=== PATIENT | female | born 1945 | race Caucasian/White ===

== ENCOUNTER 2019-09-29 08:51 | Outpatient (CLI) | payer MEDICARE, OTHER, SELFPAY | END 2019-09-29 08:52 | disposition home or self-care (01) | PROVIDERS: PCP Nurse Practitioner Family; Visit Provider Specialist | DX: L72.0 Epidermal cyst (principal); C43.59 Malignant melanoma of other part of trunk | CPT/HCPCS: 88305; 88342 ==

== ENCOUNTER 2020-02-02 08:01 | Outpatient (CLI) | payer MEDICARE, SELFPAY ==
[2020-02-02 08:15] LABS: Basophils Absolute Auto 0.05 K/mm3 (0.00-0.10); Basophils Percent Auto 0.7 % (0.0-1.0); Eosinophils Percent Auto 1.4 % (1.0-6.0); Hematocrit 44.2 % (35.0-42.0); Hemoglobin 14.3 g/dL (11.7-13.8); Immature Granulocyte Absolute 0.02 K/mm3 (0.00-0.00); Immature Granulocyte Percent A 0.3 % (0.0-0.0); Lymphocytes Absolute Auto 2.79 K/mm3 (1.10-4.50); Lymphocytes Percent Auto 39.1 % (18.0-42.0); Mean Corpuscular HGB Conc 32.4 g/dL (32.0-36.0); Mean Corpuscular Hemoglobin 28.7 pg (27.0-31.0); Mean Corpuscular Volume 88.8 fL (78.0-102.0); Mean Platelet Volume 9.3 fl (9.2-11.8); Monocytes Absolute Auto 0.53 K/mm3 (0.10-0.90); Monocytes Percent Auto 7.4 % (2.0-11.0); Neutrophils Absolute Auto 3.7 K/mm3 (1.7-7.2); Neutrophils Percent Auto 51.1 % (50.0-70.0); Platelet Count Result 192 K/mm3 (150-420); Red Blood Count 4.98 M/mm3 (4.20-5.40); Red Cell Distribution Width 12.7 % (11.6-14.4); White Blood Count 7.1 K/mm3 (4.8-10.8)
[2020-02-02 09:21] LABS: Alanine Aminotransferase 41 U/L (14-59); Albumin Level 3.5 g/dL (3.4-5.0); Alkaline Phosphatase 88 U/L (46-116); Anion Gap 8.4 mmol/L (7-16); Aspartate Amino Transferase 31 U/L (15-37); Bilirubin,Total 0.4 mg/dL (0.00-1.00); Blood Urea Nitrogen 13 mg/dL (7-18); Calcium 8.9 mg/dL (8.5-10.1); Carbon Dioxide 33 mmol/L (21-32); Chloride 102 mmol/L (98-108); Cholesterol 250 mg/dL (0-200); Estimated Glomerular Filt Rate 52; Glucose 98 mg/dL (70-99); HDL Direct 51 mg/dL (40-60); LDL Cholesterol Calculated 166 mg/dL (<130); Osmolality Calculated 288 mOsm/kg (285-295); Potassium 4.4 mmol/L (3.5-5.1); Sodium 139 mmol/L (136-145); Total Protein 6.7 g/dL (6.4-8.2); Triglycerides 164 mg/dL (0-150)
== END 2020-02-02 08:02 | disposition home or self-care (01) ==
LOC: CHSLAB 08:05
PROVIDERS: PCP Nurse Practitioner Family; Visit Provider Nurse Practitioner Family
DX: R06.02 Shortness of breath (principal); E78.5 Hyperlipidemia, unspecified; Z00.00 Encounter for general adult medical examination without abnormal findings
CPT/HCPCS: 36415; 80053; 80061; 85025

== ENCOUNTER 2020-07-19 11:37 | Outpatient (CLI) | payer MEDICARE, OTHER, SELFPAY ==
--- NOTE | 2020-07-19 11:41 | ECG_ITS ---
Measurements Intervals [place] Rate: 59 P: 55 VA: 195 QRS: 16 QRSD: 82 T: 65 QT: 397 QTc: 396 Interpretive Statements SINUS BRADYCARDIA EARLY PRECORDIAL R/S TRANSITION BORDERLINE ECG Electronically Signed On 07-19-2020 12:12:55 [employer] by Casey Hutson D.O.
[2020-07-19 12:07] LABS: Basophils Absolute Auto 0.03 K/mm3 (0.00-0.10); Basophils Percent Auto 0.4 % (0.0-1.0); Eosinophils Percent Auto 1.3 % (1.0-6.0); Hematocrit 42.9 % (35.0-42.0); Hemoglobin 14.1 g/dL (11.7-13.8); Immature Granulocyte Absolute 0.03 K/mm3 (0.00-0.00); Immature Granulocyte Percent A 0.4 % (0.0-0.0); Lymphocytes Absolute Auto 2.59 K/mm3 (1.10-4.50); Lymphocytes Percent Auto 33.1 % (18.0-42.0); Mean Corpuscular HGB Conc 32.9 g/dL (32.0-36.0); Mean Corpuscular Hemoglobin 28.5 pg (27.0-31.0); Mean Corpuscular Volume 86.8 fL (78.0-102.0); Mean Platelet Volume 9.8 fl (9.2-11.8); Monocytes Absolute Auto 0.68 K/mm3 (0.10-0.90); Monocytes Percent Auto 8.7 % (2.0-11.0); Neutrophils Absolute Auto 4.4 K/mm3 (1.7-7.2); Neutrophils Percent Auto 56.1 % (50.0-70.0); Platelet Count Result 197 K/mm3 (150-420); Red Blood Count 4.94 M/mm3 (4.20-5.40); White Blood Count 7.8 K/mm3 (4.8-10.8)
[2020-07-19 12:58] LABS: Alanine Aminotransferase 34 U/L (14-59); Albumin Level 3.8 g/dL (3.4-5.0); Alkaline Phosphatase 85 U/L (46-116); Anion Gap 6 mmol/L (8-16); Aspartate Amino Transferase 25 U/L (15-37); Bilirubin,Total 0.4 mg/dL (0.00-1.00); Blood Urea Nitrogen 13 mg/dL (7-18); Calcium 9.4 mg/dL (8.5-10.1); Carbon Dioxide 32 mmol/L (21-32); Chloride 101 mmol/L (98-108); Cholesterol 261 mg/dL (0-200); Estimated Glomerular Filt Rate 58; Glucose 83 mg/dL (70-99); HDL Direct 51 mg/dL (40-60); LDL Cholesterol Calculated 177 mg/dL (<130); Osmolality Calculated 287 mOsm/kg (285-295); Potassium 4.7 mmol/L (3.5-5.1); Sodium 139 mmol/L (136-145); Total Protein 7.1 g/dL (6.4-8.2); Triglycerides 167 mg/dL (0-150)
== END 2020-07-19 11:38 | disposition home or self-care (01) ==
LOC: CHSLAB 11:41
PROVIDERS: PCP Nurse Practitioner Family; Visit Provider Nurse Practitioner Family
DX: I20.8 Other forms of angina pectoris (principal); I10 Essential (primary) hypertension; E78.5 Hyperlipidemia, unspecified; Z00.00 Encounter for general adult medical examination without abnormal findings
CPT/HCPCS: 36415; 80053; 80061; 85025; 93005

== ENCOUNTER 2020-07-27 09:22 | Outpatient (CLI) | payer MEDICARE, OTHER, SELFPAY | END 2020-07-27 09:23 | disposition home or self-care (01) | LOC: CHSCARD 09:24 | PROVIDERS: PCP Nurse Practitioner Family; Visit Provider Nurse Practitioner Family | DX: I20.8 Other forms of angina pectoris (principal) | CPT/HCPCS: 93225; 93226 ==

== ENCOUNTER 2020-11-30 18:34 | Outpatient (NON) | payer MEDICARE, SELFPAY | END 2020-11-30 18:35 | disposition home or self-care (01) | LOC: CHSLAB 18:36 | PROVIDERS: PCP Nurse Practitioner Family; Visit Provider Nurse Practitioner Family | DX: R31.9 Hematuria, unspecified (principal) | CPT/HCPCS: 87086; 87088 ==

== ENCOUNTER 2021-02-17 11:17 | Outpatient (CLI) | payer MEDICARE, OTHER, SELFPAY ==
--- NOTE | ~2021-02-17 | XR_ITS ---
EXAMINATION: XR knee RT 3V DATE: 02/17/2021 11:55 INDICATION: Right knee pain. TECHNIQUE: 3 views of right knee were obtained. COMPARISON: None. FINDINGS: There is lateral subluxation of patella. No fracture. There is mild osteoarthritis of media l and patellofemoral compartments. There is a small knee joint effusion. IMPRESSION: 1. Mild right knee osteoarthritis. 2. Small right knee joint effusion. Reviewed, dictated and finalized at location B.
--- NOTE | ~2021-02-17 | XR_ITS ---
EXAMINATION: XR hip RT min 2V DATE: 02/17/2021 11:55 INDICATION: Right hip pain. TECHNIQUE: 2 views of right hip were obtained. COMPARISON: None. FINDINGS: Bone alignment is normal. No fracture. There is mild right hip osteoarthritis. Surgical cli ps overlie the pelvis. IMPRESSION: 1. Mild right hip osteoarthritis. Reviewed, dictated and finalized at location B.
== END 2021-02-17 11:18 | disposition home or self-care (01) ==
PROVIDERS: PCP Nurse Practitioner Family; Visit Provider Nurse Practitioner Family
DX: M25.561 Pain in right knee (principal); M25.551 Pain in right hip
CPT/HCPCS: 73502; 73562

== ENCOUNTER 2021-02-27 15:08 | Outpatient (NON) | payer MEDICARE, SELFPAY | END 2021-02-27 15:09 | disposition home or self-care (01) | LOC: CHSLAB 15:10 | PROVIDERS: Visit Provider Nurse Practitioner Family | DX: R39.9 Unspecified symptoms and signs involving the genitourinary system (principal) | CPT/HCPCS: 87077; 87086; 87088; 87186 ==

== ENCOUNTER 2021-08-28 09:33 | Outpatient (CLI) | payer MEDICARE, SELFPAY ==
--- NOTE | ~2021-08-28 | XR_ITS ---
EXAMINATION: XR_CERV2-3V_CR EXAM DATE: 08/28/2021 10:00 INDICATION: No known recent injury provided at this time. Pain of the cervical spine. TECHNIQUE: Cervical spine frontal, lateral, open-mouth odontoid projections. There is no prior stud y for comparison. FINDINGS: There is no evidence of acute cervical fracture. The odontoid process is intact. Pre-dens space is normal. Prevertebral soft tissue is normal. There are no soft tissue abnormalities identi fied. There is moderate disc disease at C5-6 and 6-7. Mild to moderate cervical arthropathy. The v ertebral bodies are aligned. IMPRESSION: 1. Moderate lower cervical disc disease. 2. Mild to moderate arthropathy. Reviewed, dictated and finalized at location B. ER SORTER
== END 2021-08-28 09:34 | disposition home or self-care (01) ==
LOC: CHSIMG 09:36
PROVIDERS: PCP Nurse Practitioner Family; Visit Provider Nurse Practitioner Family
DX: M54.2 Cervicalgia (principal)
CPT/HCPCS: 72040

== ENCOUNTER 2022-08-06 09:32 | Outpatient (CLI) | payer MEDICARE, SELFPAY ==
[2022-08-06 09:51] LABS: Basophils Absolute Auto 0.05 K/mm3 (0.00-0.10); Basophils Percent Auto 0.7 % (0.0-1.0); Eosinophils Absolute Auto 0.11 K/mm3 (0.02-0.50); Eosinophils Percent Auto 1.6 % (1.0-6.0); Hematocrit 43.2 % (35.0-42.0); Hemoglobin 14.2 g/dL (11.7-13.8); Immature Granulocyte Absolute 0.02 K/mm3 (0.00-0.00); Immature Granulocyte Percent A 0.3 % (0.0-0.0); Lymphocytes Absolute Auto 2.78 K/mm3 (1.10-4.50); Mean Corpuscular HGB Conc 32.9 g/dL (32.0-36.0); Mean Corpuscular Hemoglobin 29.3 pg (27.0-31.0); Mean Corpuscular Volume 89.1 fL (78.0-102.0); Mean Platelet Volume 9.7 fl (9.2-11.8); Monocytes Absolute Auto 0.56 K/mm3 (0.10-0.90); Monocytes Percent Auto 8.1 % (2.0-11.0); Neutrophils Absolute Auto 3.4 K/mm3 (1.7-7.2); Neutrophils Percent Auto 49.3 % (50.0-70.0); Platelet Count Result 172 K/mm3 (150-420); Red Blood Count 4.85 M/mm3 (4.20-5.40)
[2022-08-06 10:45] LABS: Alanine Aminotransferase 33 U/L (14-59); Albumin Level 3.6 g/dL (3.4-5.0); Alkaline Phosphatase 84 U/L (46-116); Anion Gap 8 mmol/L (8-16); Aspartate Amino Transferase 23 U/L (15-37); Bilirubin,Total 0.5 mg/dL (0.00-1.00); Blood Urea Nitrogen 16 mg/dL (7-18); Calcium 8.9 mg/dL (8.5-10.1); Carbon Dioxide 30 mmol/L (21-32); Chloride 105 mmol/L (98-108); Cholesterol 175 mg/dL (0-200); Estimated Glomerular Filt Rate 59; Glucose 94 mg/dL (70-99); HDL Direct 60 mg/dL (40-60); LDL Cholesterol Calculated 87 mg/dL (<130); Osmolality Calculated 297 mOsm/kg (285-295); Potassium 4.2 mmol/L (3.5-5.1); Sodium 143 mmol/L (136-145); Total Protein 6.8 g/dL (6.4-8.2); Triglycerides 142 mg/dL (0-150)
== END 2022-08-06 09:33 | disposition home or self-care (01) ==
LOC: CHSLAB 09:33
PROVIDERS: PCP Nurse Practitioner Family; Visit Provider Nurse Practitioner Family
DX: E78.5 Hyperlipidemia, unspecified (principal); I10 Essential (primary) hypertension
CPT/HCPCS: 36415; 80053; 80061; 85025

== ENCOUNTER 2022-08-10 12:57 | Outpatient (CLI) | payer MEDICARE, SELFPAY ==
--- NOTE | 2022-08-10 13:33 | ECHO_ITS ---
Patient Info Name: Michaela Mary Age: 77 years : 1945 Gender: Female HR: 64 bpm Technical Quality: Fair Exam Date: 08/10/2022 1:01 PM Exam Location: [facility] Patient Status: Outpatient Admit Date: 08/10/2022 Staff Ordering Physician: CAROL COULTER NP [place]: Guero Hernandez, BAM, RT Referring Physician: CAROL COULTER NP; Exam Type: CA echo doppler color flow Study Info Indications R01.1 - Cardiac murmur, unspecified Complete two-dimensional, color flow and Doppler transthoracic echocardiogram is performed. Summary 1. Complete two-dimensional, color flow and Doppler transthoracic echocardiogram is performed. 2. Left ventricular chamber dimension is normal. 3. Left ventricular systolic function is normal, estimated at 60-65%. 4. There is mild concentric increased left ventricular wall thickness. 5. E/e' 10 is mildly elevated. Left Ventricle E/e' 10 is mildly elevated. Left ventricular chamber dimension is normal. Left ventricular systolic function is normal, estimated at 60-65%. There is mild concentric increased left ventricular wall thickness. Right Ventricle Right ventricular systolic function is normal and with normal TAPSE 2.3 cm. Right ventricular chamber dimension is normal. Left Atria Left atrial chamber dimension is normal. Right Atria Right atrial chamber dimension is normal. Aortic Valve The aortic valve is trileaflet. There is no aortic valve stenosis. There is no aortic valve regurgitation. Pulmonic Valve There is no pulmonic regurgitation. Mitral Valve There is no mitral valve stenosis. There is no mitral valve regurgitation. Tricuspid Valve There is no tricuspid valve regurgitation. Pericardium/Pleural There is no pericardial effusion. Inferior Vena Cava Normal inferior vena cava with >50% collapse upon inspiration consistent with normal right atrial pressure, 5 mmHg. Aorta The aortic root size at the sinus of Valsalva is normal. Tricuspid Valve Name Value Normal Estimated PAP/RSVP RA Pressure 5 mmHg <=5 Report Signatures
== END 2022-08-10 12:58 | disposition home or self-care (01) ==
LOC: CHSIMG 12:58
PROVIDERS: PCP Nurse Practitioner Family; Visit Provider Nurse Practitioner Family
DX: R01.1 Cardiac murmur, unspecified (principal)
CPT/HCPCS: 93306

== ENCOUNTER 2023-01-09 14:04 | Outpatient (NON) | payer MEDICARE, SELFPAY ==
[2023-01-09 14:11] LABS: Appearance Urine Clear (Clear); Bilirubin Urine Negative (Negative); Blood Urine Negative (Negative); Glucose Urine UA Negative (Negative); Ketones Urine Trace (Negative); Leukocyte Esterase Ur 1+ LEU/UL (Negative); Nitrate Urine Negative (Negative); Protein Urine 1+ (Negative); Specific Grav Ur 1.025 (1.010-1.020); Urobilinogen Urine 0.2 mg/dL (0.2-1.0)
[2023-01-09 14:13] LABS: Add Urine Microscopic? YES; Color Urine Dark Amber (Yellow); RBC Urine None seen /hpf (0-2)
[2023-01-09 14:14] LABS: Bacteria Urine Trace /hpf; Calcium Oxalate Crystals Urine Present /hpf; Squamous Epithelial Cell Urine Rare /hpf (Few)
== END 2023-01-09 14:05 | disposition home or self-care (01) ==
PROVIDERS: Visit Provider Nurse Practitioner Family
DX: R39.9 Unspecified symptoms and signs involving the genitourinary system (principal)
CPT/HCPCS: 81001; 87086; 87088

== ENCOUNTER 2023-01-29 10:48 | Outpatient (NON) | payer MEDICARE, SELFPAY | END 2023-01-29 10:49 | disposition home or self-care (01) | LOC: CHSLAB 10:49 | PROVIDERS: Visit Provider Nurse Practitioner Family | DX: L91.8 Other hypertrophic disorders of the skin (principal) | CPT/HCPCS: 88305 ==

== ENCOUNTER 2023-05-19 13:40 | Emergency (ER) | payer MEDICARE, SELFPAY ==
[2023-05-19 13:40] VITALS: PULSE 86; RESP 20; TEMP 36.4; O2SAT 93
--- NOTE | 2023-05-19 13:43 | ED.WOUNDLAC ---
HPI - Wound/Laceration General Chief Complaint: Wound/Laceration Stated Complaint: right index finger laceration Time Seen by Provider: 05/19/23 13:43 Source: patient and RN notes reviewed Mode of arrival: ambulatory Limitations: no limitations History of Present Illness HPI narrative: patient states she was using a hand saw to cut a limb and it slipped raked over her right index finger. Onset (ago): minute(s) (30) Extremity Location: Right: hand ( Index finger) Place: home Patient tetanus UTD: No Context: accidental Associated symptoms: pain Treatments prior to arrival: bandage Related Data Allergies Allergy/AdvReac Type Severity Reaction Status Date / Time codeine Allergy Intermediate Unknown Verified 01/29/23 11:46 Penicillins Allergy Intermediate Unknown Verified 01/29/23 11:46 Review of Systems Review of Systems: All systems reviewed & are unremarkable except as noted in HPI and below PMFSH Past Medical History Medical History Cyst of buttocks Disc degeneration GERD (gastroesophageal reflux disease) HTN (hypertension) Hyperlipidemia Kidney anomaly, 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 Overweight Surgical History Surgical History H/O vaginal hysterectomy History of breast augmentation Right breast reduction(about 5lb removed) History of cataract removal with insertion of prosthetic lens Family History Family History Mother Colon cancer Social History Social History Smoking status: Never smoker Alcohol intake: never Substance use: never Lack of Transportation: No Lack of Food: Never True Current Housing: I Have Housing Concerned About Future Housing: No Difficulty Paying Gas/Electric Bills: No Difficulty Paying for Meds: No Currently Unemployed: No Difficulty w/ Childcare or Family Care: No Living arrangements: alone Occupation/Education: retired Additional occupation/education comments: Works in the [employer] Gender identity (if verbalized by the patient): Female Exam Const: General: healthy appearing, no acute distress and alert Nutritional Appearance: well nourished and obese Orientation/consciousness: patient oriented x3 Limitations: no limitations HENMT: Head: normal to inspection Ears: external ears normal Face/Nose/Sinus: Normal external nose present Face and sinus: normal facial exam Mouth: Yes moist mucous membranes Eyes: Conjunctivae: conjunctivae normal Pupils: Equal, round and reactive pupils present EOM: EOMs intact bilaterally Neck: Neck: normal visual inspection Resp: Effort & Inspection: normal respiratory effort Auscultation: clear to auscultation bilaterally Cardio: Rate: regular rate Rhythm: regular rhythm GI: GI Palp: Yes Soft to palpation and No Tenderness to palpation present (GI) Auscultation: normal bowel sounds Back/Spine/Pelvis: Cervical Spine: cervical ROM normal Thoracic/Lumbar Spine: thoraco-lumbar ROM normal Skin: General skin exam: normal color Wounds: wounds noted laceration right mid 2nd finger size (1 cm) and margins poorly approximated Neuro: General: patient oriented x3, moves all extremities, no focal motor deficits and CN's II-XI intact bilaterally Speech: normal speech Gait exam (Neuro): Normal gait present Extrem: General: normal to inspection and no clubbing, cyanosis or edema Psych: Mental Status: mental status grossly normal Affect: normal affect Attitude: cooperative Procedures Laceration Laceration 1: Date: 05/19/23 Site: hand ( Index finger) Side (If applicable): right Size (cm): 1 Description: stellate Depth: simple, single layer Pre-repair: wound explored ====== Skin Level ====== Skin layer closed with: derm
[2023-05-19 13:56] VITALS: BP 142/89
[2023-05-19] MEDS: TETANUS,DIPHTHERIA,AC PERTUSSIS ADULT 0.5 ML (ADACEL) IM (13:58)
== END 2023-05-19 14:07 | disposition home or self-care (01) ==
PROVIDERS: Emergency Provider Emergency Medicine; PCP Nurse Practitioner Family
DX: S61.210A Laceration without foreign body of right index finger without damage to nail, initial encounter (principal); I10 Essential (primary) hypertension; E78.5 Hyperlipidemia, unspecified; Z23 Encounter for immunization; W27.0XXA Contact with workbench tool, initial encounter; Y92.009 Unspecified place in unspecified non-institutional (private) residence as the place of occurrence of the external cause
CPT/HCPCS: 12001; 90471; 90715; 99282

== ENCOUNTER 2023-09-05 15:14 | Outpatient (CLI) | payer MEDICARE, SELFPAY ==
[2023-09-05 15:49] LABS: Appearance Urine Clear (Clear); Bilirubin Urine Negative (Negative); Blood Urine Negative (Negative); Color Urine Light Yellow (Yellow); Glucose Urine UA Negative (Negative); Ketones Urine Negative (Negative); Leukocyte Esterase Ur 1+ LEU/UL (Negative); Nitrate Urine Negative (Negative); Protein Urine Negative (Negative); Specific Grav Ur 1.015 (1.010-1.020); Urobilinogen Urine 0.2 mg/dL (0.2-1.0)
[2023-09-05 15:57] LABS: Add Urine Microscopic? YES; Bacteria Urine 3+ /hpf; RBC Urine 0-2 /hpf (0-2); Squamous Epithelial Cell Urine Rare /hpf (Few)
[2023-09-05 16:24] LABS: Basophils Absolute Auto 0.05 K/mm3 (0.00-0.10); Basophils Percent Auto 0.5 % (0.0-1.0); Eosinophils Absolute Auto 0.11 K/mm3 (0.02-0.50); Eosinophils Percent Auto 1.1 % (1.0-6.0); Hematocrit 42.1 % (35.0-42.0); Hemoglobin 13.7 g/dL (11.7-13.8); Immature Granulocyte Absolute 0.02 K/mm3 (0.00-0.00); Immature Granulocyte Percent A 0.2 % (0.0-0.0); Lymphocytes Percent Auto 32.7 % (18.0-42.0); Mean Corpuscular HGB Conc 32.5 g/dL (32.0-36.0); Mean Corpuscular Hemoglobin 28.1 pg (27.0-31.0); Mean Corpuscular Volume 86.4 fL (78.0-102.0); Mean Platelet Volume 10.1 fl (9.2-11.8); Monocytes Absolute Auto 0.85 K/mm3 (0.10-0.90); Monocytes Percent Auto 8.7 % (2.0-11.0); Neutrophils Absolute Auto 5.6 K/mm3 (1.7-7.2); Neutrophils Percent Auto 56.8 % (50.0-70.0); Platelet Count Result 223 K/mm3 (150-420); Red Blood Count 4.87 M/mm3 (4.20-5.40); Red Cell Distribution Width 13.1 % (11.6-14.4); White Blood Count 9.8 K/mm3 (4.8-10.8)
[2023-09-05 19:02] LABS: Alanine Aminotransferase 37 U/L (14-59); Albumin Level 3.6 g/dL (3.4-5.0); Alkaline Phosphatase 83 U/L (46-116); Anion Gap 10 mmol/L (8-16); Aspartate Amino Transferase 27 U/L (15-37); Bilirubin,Total 0.5 mg/dL (0.00-1.00); Blood Urea Nitrogen 13 mg/dL (7-18); Calcium 8.9 mg/dL (8.5-10.1); Carbon Dioxide 30 mmol/L (21-32); Chloride 102 mmol/L (98-108); Estimated Glomerular Filt Rate > 60; Free T4 Free Thyroxine 0.98 ng/dL (0.76-1.46); Glucose 89 mg/dL (70-99); Iron 45 ug/dL (50-170); Magnesium 1.6 mg/dL (1.8-2.4); Osmolality Calculated 293 mOsm/kg (285-295); Potassium 4.4 mmol/L (3.5-5.1); Sodium 142 mmol/L (136-145); Thyroid Stimulating Hormone 1.68 uIU/mL (0.36-3.74); Total Protein 6.5 g/dL (6.4-8.2); Vitamin B12 839 pg/mL (193-986)
[2023-09-08 20:40] LABS: Vitamin D 25 Hydroxy 43 ng/mL (30-100)
== END 2023-09-05 15:15 | disposition home or self-care (01) ==
LOC: CHSLAB 15:16
PROVIDERS: PCP Nurse Practitioner Family; Visit Provider Nurse Practitioner Family
DX: D64.9 Anemia, unspecified (principal); R53.83 Other fatigue; Z79.899 Other long term (current) drug therapy
CPT/HCPCS: 36415; 80053; 81001; 82306; 82607; 83540; 83735; 84439; 84443; 85025; 87086

== ENCOUNTER 2023-11-28 12:50 | Emergency (ER) | payer MEDICARE, SELFPAY ==
--- NOTE | ~2023-11-28 | XR_ITS ---
EXAMINATION: XR wrist LT min 3V DATE: 11/28/2023 13:11 INDICATION: Left wrist injury. TECHNIQUE: 4 views of left wrist were obtained. COMPARISON: None. FINDINGS: Bone alignment is normal. No fracture. There is mild osteoarthritis of first carpometacarpa l joint. IMPRESSION: 1. Mild osteoarthritis of first carpometacarpal joint. Reviewed, dictated and finalized at location A.
--- NOTE | ~2023-11-28 | XR_ITS ---
EXAMINATION: XR hand LT min 3V DATE: 11/28/2023 13:11 INDICATION: Left hand and wrist injury. TECHNIQUE: 3 views of left hand were obtained. COMPARISON: None. 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 There is ankylos is of third proximal and distal interphalangeal joints and fourth distal interphalangeal joint. No fr acture. There is mild osteoarthritis of first carpometacarpal joint and some of the interphalangeal j oints and metacarpophalangeal joints. There is moderate osteoarthritis of first interphalangeal joint . IMPRESSION: 1. Polyarticular osteoarthritis. Reviewed, dictated and finalized at location A.
[2023-11-28 12:50] VITALS: BP 155/89; PULSE 64; RESP 16; TEMP 36.5; O2SAT 97
--- NOTE | 2023-11-28 13:32 | ED.UPPEXIN ---
HPI - Extremity Injury (Upper) General Chief Complaint: Extremity Injury, Upper Stated Complaint: left hand injury Time Seen by Provider: 11/28/23 12:54 Source: patient Mode of arrival: ambulatory Limitations: no limitations History of Present Illness HPI narrative: this is a 78-year-old female who presents with left wrist and hand pain after she injured it has a history of fall finger deformity there is some mild swelling no numbness or tingling he has good range of motion with a strong brisk radial pulse on the left MD complaint: injury to: left Onset (ago): day(s) Other Extremity Injury: Left: hand ( tender with some mild swelling) and wrist ( tender with mild swelling) Related Data Home Medications Medication Instructions Recorded Confirmed acetaminophen 500 mg tablet 500 mg PO Q6H PRN 05/21/23 09/05/23 (Tylenol Extra Strength) ibuprofen 200 mg tablet (Motrin IB) 200 mg PO Q6H PRN 05/21/23 09/05/23 Allergies Allergy/AdvReac Type Severity Reaction Status Date / Time codeine Allergy Intermediate Unknown Verified 09/05/23 14:26 Penicillins Allergy Intermediate Unknown Verified 09/05/23 14:26 Review of Systems Review of Systems: All systems reviewed & are unremarkable except as noted in HPI and below PMFSH Past Medical History Medical History Cyst of buttocks Disc degeneration GERD (gastroesophageal reflux disease) HTN (hypertension) Hyperlipidemia Kidney anomaly, 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 Overweight Surgical History Surgical History H/O vaginal hysterectomy History of breast augmentation Right breast reduction(about 5lb removed) History of cataract removal with insertion of prosthetic lens Family History Family History Mother Colon cancer Social History Social History Smoking status: Never smoker Alcohol intake: never Substance use: never Lack of Transportation: No Lack of Food: Never True Current Housing: I Have Housing Concerned About Future Housing: No Difficulty Paying Gas/Electric Bills: No Difficulty Paying for Meds: No Currently Unemployed: No Difficulty w/ Childcare or Family Care: No Living arrangements: alone Occupation/Education: retired Additional occupation/education comments: Works in the [employer] Gender identity (if verbalized by the patient): Female Exam Const: General: healthy appearing Nutritional Appearance: well nourished Orientation/consciousness: patient oriented x3 Limitations: no limitations Resp: Effort & Inspection: normal respiratory effort Auscultation: clear to auscultation bilaterally Cardio: Rate: regular rate Rhythm: regular rhythm Skin: General skin exam: normal color Rashes: no rashes Wounds: no wounds Neuro: General: patient oriented x3 and moves all extremities Extrem: Other: tenderness left wrist with movement palpation Course Course Emergency Course: patient is comfortable with pain level well controlled x-ray performed shows no acute fractures. Vital Signs Vital signs: Vital Signs Temperature 36.5 C 11/28/23 12:50 Pulse Rate 64 11/28/23 12:50 Respiratory Rate 16 11/28/23 12:50 Blood Pressure 155/89 H 11/28/23 12:50 Pulse Oximetry 97 11/28/23 12:50 Oxygen Delivery Room Air 11/28/23 12:50 Temperature 36.5 C 11/28/23 12:50 Pulse Rate 64 11/28/23 12:50 Respiratory Rate 16 11/28/23 12:50 Blood Pressure 155/89 H 11/28/23 12:50 Pulse Oximetry 97 11/28/23 12:50 Oxygen Delivery Room Air 11/28/23 12:50 Critical Care Time Critical Care Time Critical Care Time: No Discharge Plan Discharge Clinical Impression: Left wrist sprain Qualifiers: Encounter type: initial encounter Qualified Code(s): S63.502A -
[2023-11-28 13:38] VITALS: BP 148/85; PULSE 68; RESP 18; TEMP 36.6; O2SAT 97
== END 2023-11-28 13:38 | disposition home or self-care (01) ==
PROVIDERS: Emergency Provider Emergency Medicine; PCP Nurse Practitioner Family
DX: S63.502A Unspecified sprain of left wrist, initial encounter (principal); W19.XXXA Unspecified fall, initial encounter; I10 Essential (primary) hypertension; E78.5 Hyperlipidemia, unspecified; K21.9 Gastro-esophageal reflux disease without esophagitis; Q63.9 Congenital malformation of kidney, unspecified
CPT/HCPCS: 73110; 73130; 99283

== ENCOUNTER 2023-12-16 10:08 | Outpatient (CLI) | payer MEDICARE, SELFPAY ==
[2023-12-16 10:51] LABS: Iron 63 ug/dL (50-170); Magnesium 1.5 mg/dL (1.8-2.4)
== END 2023-12-16 10:09 | disposition home or self-care (01) ==
LOC: CHSLAB 10:10
PROVIDERS: PCP Nurse Practitioner Family; Visit Provider Nurse Practitioner Family
DX: D64.9 Anemia, unspecified (principal); E83.42 Hypomagnesemia
CPT/HCPCS: 36415; 83540; 83735

== ENCOUNTER 2024-05-15 08:40 | Outpatient (CLI) | payer MEDICARE, SELFPAY ==
[2024-05-15 08:56] LABS: Basophils Absolute Auto 0.05 K/mm3 (0.00-0.10); Basophils Percent Auto 0.7 % (0.0-1.0); Eosinophils Absolute Auto 0.16 K/mm3 (0.02-0.50); Eosinophils Percent Auto 2.4 % (1.0-6.0); Hematocrit 41.2 % (35.0-42.0); Hemoglobin 13.8 g/dL (11.7-13.8); Immature Granulocyte Absolute 0.03 K/mm3 (0.00-0.00); Immature Granulocyte Percent A 0.4 % (0.0-0.0); Lymphocytes Absolute Auto 2.55 K/mm3 (1.10-4.50); Lymphocytes Percent Auto 37.6 % (18.0-42.0); Mean Corpuscular HGB Conc 33.5 g/dL (32-36); Mean Corpuscular Hemoglobin 29.3 pg (27.0-31.0); Mean Corpuscular Volume 87.5 fL (78.0-102.0); Mean Platelet Volume 9.5 fl (9.2-11.8); Monocytes Absolute Auto 0.63 K/mm3 (0.10-0.90); Monocytes Percent Auto 9.3 % (2.0-11.0); Neutrophils Absolute Auto 3.37 K/mm3 (1.70-7.20); Neutrophils Percent Auto 49.6 % (50.0-70.0); Platelet Count Result 180 K/mm3 (150-420); Red Blood Count 4.71 M/mm3 (4.20-5.40); Red Cell Distribution Width 12.9 % (11.6-14.4); White Blood Count 6.8 K/mm3 (4.8-10.8)
[2024-05-15 09:32] LABS: Alanine Aminotransferase 29 U/L (14-59); Albumin Level 3.6 g/dL (3.4-5.0); Alkaline Phosphatase 92 U/L (46-116); Anion Gap 9 mmol/L (4-12); Aspartate Amino Transferase 20 U/L (15-37); Bilirubin,Total 0.5 mg/dL (0.00-1.00); Blood Urea Nitrogen 14 mg/dL (7-18); Calcium 9.3 mg/dL (8.5-10.1); Carbon Dioxide 31 mmol/L (21-32); Chloride 101 mmol/L (98-108); Cholesterol 180 mg/dL (0-200); Estimated Glomerular Filt Rate 56; Glucose 99 mg/dL (70-99); HDL Direct 63 mg/dL (40-60); Iron 70 ug/dL (50-170); LDL Cholesterol Calculated 88 mg/dL (<130); Magnesium 1.3 mg/dL (1.8-2.4); Osmolality Calculated 292 mOsm/kg (285-295); Potassium 4.4 mmol/L (3.5-5.1); Sodium 141 mmol/L (136-145); Total Protein 6.6 g/dL (6.4-8.2); Triglycerides 146 mg/dL (0-150)
[2024-05-16 10:54] LABS: Vitamin D 25 Hydroxy 33 ng/mL (30-100)
== END 2024-05-15 08:41 | disposition home or self-care (01) ==
LOC: CHSLAB 08:43
PROVIDERS: PCP Nurse Practitioner Family; Visit Provider Nurse Practitioner Family
DX: I10 Essential (primary) hypertension (principal); E78.5 Hyperlipidemia, unspecified; Z13.6 Encounter for screening for cardiovascular disorders; Z79.899 Other long term (current) drug therapy; E61.1 Iron deficiency
CPT/HCPCS: 36415; 80053; 80061; 82306; 83540; 83735; 85025

== ENCOUNTER 2024-10-09 10:39 | Outpatient (NON) | payer MEDICARE, SELFPAY ==
[2024-10-09 11:11] LABS: Add Urine Microscopic? YES; Appearance Urine Clear (Clear); Bilirubin Urine Negative (Negative); Blood Urine 1+ (Negative); Color Urine Red (Yellow); Glucose Urine UA Negative (Negative); Ketones Urine Negative (Negative); Leukocyte Esterase Ur 3+ LEU/UL (Negative); Nitrate Urine Negative (Negative); Protein Urine 1+ (Negative); Specific Grav Ur 1.025 (1.010-1.020); Urobilinogen Urine 0.2 mg/dL (0.2-1.0)
--- OUTSIDE RECORDS SUMMARY | 2024-10-09 11:15 | XMS_ITS ---
Author Organization [facility] Address [address] [place], [place] [address] Care Team Providers Care Logistics Vice President Name Role Phone Maritza Acevedo Unavailable Unavailable ELENITA RIVERA Unavailable [phone] Allergies Allergen (clinical drug ingredient) Drug/Non Drug Allergy documented on EMR Reaction Allergy Type Onset Date Status meperidine Demerol Unknown Drug Allergy 11/20/2015 activ e codeine Codeine Unknown Drug Allergy 11/20/2015 active morphine Morphine Unknown Drug Allergy Active Substance with penicillin structure and antibacterial mechanism of action (substance) Penicillins Unknown Drug Allergy 11/20/2015 active REASON FOR VISIT *General care Medications Medication SIG (Take, Route, Frequency, Duration) Notes Start Date End Date Status ibuprofen 200 MG Oral Tablet [Motrin] ORAL ibuprofen 200 MG Oral Tablet [Motrin]Original Medicationibuprofen 200 MG Oral Tablet [Motrin] *Reorder from [facility] for eRx and Interaction Alerts* 11/20/19 16 Active omeprazole 10 MG Delayed Release Oral Capsule [Prilosec] ORAL omeprazole 10 MG Delayed Release Oral Capsule [Prilosec]Original Medicationomeprazole 10 MG Delayed Release Oral Capsule [Prilosec] *Reorder from [facility] for eRx and Interaction Alerts* 11/20/19 16 Active aspirin 81 MG Delayed Release Oral Tablet ORAL aspirin 81 MG Delayed Release Oral TabletOriginal Medicationaspirin 81 MG Delayed Release Oral Tablet *Reorder from [facility] for eRx and Interaction Alerts* 11/20/19 16 Active bisoprolol fumarate 5 MG / hydrochlorothiazide 6.25 MG Oral Tablet ORAL bisoprolol fumarate 5 MG / hydrochlorothiazide 6.25 MG Oral TabletOriginal Medicationbisoprolol fumarate 5 MG / hydrochlorothiazide 6.25 MG Oral Tablet *Reorder from [facility] for eRx and Interaction Alerts* 11/20/19 16 Active acetaminophen 325 MG Oral Tablet [Tylenol] ORAL acetaminophen 325 MG Oral Tablet [Tylenol]Original Medicationacetaminophen 325 MG Oral Tablet [Tylenol] *Reorder from [facility] for eRx and Interaction Alerts* 11/20/19 16 Active Simvastatin 20 MG Oral Tablet ORAL simvastatin 20 MG Oral TabletOriginal Medicationsimvastatin 20 MG Oral Tablet *Reorder from [facility] for eRx and Interaction Alerts* 11/20/19 16 Active Encounters Encounter Location Date Provider Diagnosis [address] [id number] 04/09/2024 ELENITA RIVERA Other hammer toe(s) (acquired), right foot M20.41 ; Tinea unguium B35.1 ; Other hammer toe(s) (acquired), left foot M20.42 ; Pain in right toe(s) M79.674 ; Pain in left toe(s) M79.675 ; Unspecified atherosclerosis of [place] arteries of extremities, bilateral legs I70.203 ; Ingrowing nail L60.0 ; Localized edema R60.0 ; Cellulitis of right toe L03.031 and Cutaneous abscess of right foot L02.611 Assessments Encounter Date Diagnosis (ICD Code) Assessment Notes Treatment Notes Treatment Clinical Notes Section Notes 04/09/2024 Other hammer toe(s) (acquired), right foot (ICD-10 - M20.41) The patient was educated regarding how to mechanically stabilize their deformity. The patient was given education about shoe recommendations specific for the condition. The patient was educated about custom orthotics and how appropriate shoes and orthotics can prevent further worsening of the deformity. The patient was educated about how bad shoe habits can worsen the condition. NSAIDS, P.T., injections and other conservative treatments were discussed. Both surgical and non surgical treatments were discussed, but conservative options were emphasized. 04/09/2024 Tinea unguium (ICD-10 - B35.1) Aseptic debridement of elongated thickened nails x 10 using sterile nippers, nails were debrided in length and thickness by 30% utilizing a nail nipper without incident. The patient was educated regarding all treatment options that include topical and oral antifungal treatments. I discussed the options of taking a sample of the nail to confirm diagnosis. Nail clippings were not sent for pathology analysis. The patient was educated why and how the fungal infection evolved in their feet and the patient was given information regarding how to prevent further infection. The patient was told to keep feet dry and change socks. The patient was told to be careful with old shoes and excessive sweating. The patient was educated regarding both OTC and prescription treatments. 04/09/2024 Other hammer toe(s) (acquired), left foot (ICD-10 - M20.42) 04/09/2024 Pain in right toe(s) (ICD-10 - M79.674) 04/09/2024 Pain in left toe(s) (ICD-10 - M79.675) 04/09/2024 Unspecified atherosclerosis of [place] arteries of extremities, bilateral legs (ICD-10 - I70.203) Patient educated on risks and aggravating factors of PVD, including conservative treatment options such as a diet and exercise regimen to aid in slowing progression of vascular disease 04/09/2024 Ingrowing nail (ICD-10 - L60.0) 04/09/2024 Localized edema (ICD-10 - R60.0) 04/09/2024 Cellulitis of right toe (ICD-10 - L03.031) 04/09/2024 Cutaneous abscess of right foot (ICD-10 - L02.611) Incision and Drainage / I&D: Following skin prep, the abscess to right hallux periungual region was drained following adequate removal of offending nail border with slant back procedure. The infection was decompressed and approximately 3cc of serous and purulent fluid was expressed. Recommend daily bacitracin dressing changes for 2-3 days. Patient instructed to monitor the area. Plan Of Treatment Treatment Notes Assessment Notes Other hammer toe(s) (acquired), right fo ot The patient was educated regarding how to mechanically stabilize their deformity. The patient was given education about shoe recommendations specific for the condition. The patient was educated about custom orthotics and how appropriate shoes and orthotics can prevent further worsening of the deformity. The patient was educated about how bad shoe habits can worsen the condition. NSAIDS, P.T., injections and other conservative treatments were discussed. Both surgical and non surgical treatments were discussed, but conservative options were emphasized. Tinea unguium Aseptic debridement of elongated thickened nails x 10 using sterile nippers, nails were debrided in length and thickness by 30% utilizing a nail nipper without incident. The patient was educated regarding all treatment options that include topical and oral antifungal treatments. I discussed the options of taking a sample of the nail to confirm diagnosis. Nail clippings were not sent for pathology analysis. The patient was educated why and how the fungal infection evolved in their feet and the patient was given information regarding how to prevent further infection. The patient was told to keep feet dry and change socks. The patient was told to be careful with old shoes and excessive sweating. The patient was educated regarding both OTC and prescription treatments. Unspecified atherosclerosis of [place] arteries of extremities, bilateral legs Patient educated on risks and aggravating factors of PVD, including conservative treatment options such as a diet and exercise regimen to aid in slowing progression of vascular disease Cutaneous abscess of right foot Incision and Drainage / I&D: Following skin prep, the abscess to right hallux periungual region was drained following adequate removal of offending nail border with slant back procedure. The infection was decompressed and approximately 3cc of serous and purulent fluid was expressed. Recommend daily bacitracin dressing changes for 2-3 days. Patient instructed to monitor the area. Next Appt Details Follow Up: 3 Months, Reason: Progress Notes * TRICIA BOSTON ADOB:[birth year] (79 yo F)Acc No.[id number]:04/09/2024 Patient: TRICIA JOHNSON A Provider: Hammad RIVERA :1945 A ge:79 Y S ex:Female Date:04/09/2024 Address:[address] [place], [place] [id number] Subjective: * Chief Complaints: * 1 . *General care. * HPI: H PI: General care P atient presents to the office for at risk foot care. Patient states that their nails are thickened, elongated and painful. Patient states that it is aggravated by shoe gear. Onset is gradual. Patient denies being diabetic., Patient denies taking blood thinners., Date last seen by Dr. Acevedo was 12/2023., Initials mca. * ROS: G eneral / Constitutional: Patient denies w eakness. R espiratory: Patient denies c hronic cough, shortness of breath, sputum production. C ardiovascular: Patient denies c hest pain, history of CO, irregular heartbeat. M usculoskeletal: Patient denies a rthritis, joint stiffness. P atient complains of h ammertoes. P eripheral Vascular: Patient denies b lanching of skin, cold extremities, decreased sensation in extremities. S kin: Patient complains of f ungal nails, nail changes, ingrown nails. N eurologic: Patient denies d izziness, gait abnormality, headache. * Medical History: * Medications: T aking Simvastatin 20 MG Oral Tablet ORAL , Notes to Pharmacist: simvastatin 20 MG Oral TabletOriginal Medicationsimvastatin 20 MG Oral Tablet *Reorder from [facility] for eRx and Interaction Alerts*, Taking acetaminophen 325 MG Oral Tablet [Tylenol] ORAL , Notes to Pharmacist: acetaminophen 325 MG Oral Tablet [Tylenol]Original Medicationacetaminophen 325 MG Oral Tablet [Tylenol] *Reorder from [facility] for eRx and Interaction Alerts*, Taking aspirin 81 MG Delayed Release Oral Tablet ORAL , Notes to Pharmacist: aspirin 81 MG Delayed Release Oral TabletOriginal Medicationaspirin 81 MG Delayed Release Oral Tablet *Reorder from [facility] for eRx and Interaction Alerts*, Taking bisoprolol fumarate 5 MG / hydrochlorothiazide 6.25 MG Oral Tablet ORAL , Notes to Pharmacist: bisoprolol fumarate 5 MG / hydrochlorothiazide 6.25 MG Oral TabletOriginal Medicationbisoprolol fumarate 5 MG / hydrochlorothiazide 6.25 MG Oral Tablet *Reorder from [facility] for eRx and Interaction Alerts*, Taking ibuprofen 200 MG Oral Tablet [Motrin] ORAL , Notes to Pharmacist: ibuprofen 200 MG Oral Tablet [Motrin]Original Medicationibuprofen 200 MG Oral Tablet [Motrin] *Reorder from [facility] for eRx and Interaction Alerts*, Taking omeprazole 10 MG Delayed Release Oral Capsule [Prilosec] ORAL , Notes to Pharmacist: omeprazole 10 MG Delayed Release Oral Capsule [Prilosec]Original Medicationomeprazole 10 MG Delayed Release Oral Capsule [Prilosec] *Reorder from [facility] for eRx and Interaction Alerts* * Allergies: D emerol: Allergy - Onset Date 11/20/2015, Codeine: Allergy - Onset Date 11/20/2015, Penicillins: Allergy - Onset Date 11/20/2015, Morphine: Allergy. Objective: * Vitals: * Examination: P hysical Examination: V ascular: Dorsalis Pedis pulse noted at 1/4 right foot and 1/4 left foot and Posterior Tibial pulse noted at 1/4 right foot and 1/4 left foot, Capillary refill times noted to be less than three seconds x ten, Temperature gradient noted to be warm to cool to bilateral foot, pedal hair present to bilateral foot and no varicosities are noted Dermatologic: there are no open lesions, mild erythema noted to lateral nail fold of right foot second digit, no ecchymoses, nails are elongated thickened and dystrophic with subungual debris x ten, lateral nail border ingrown to right foot second digit with periungual erythema and mild serous drainage expressed with nail debridement Musculoskeletal: there is pain to palpation onto nail plate x ten, no calf pain noted bilaterally, arch height noted at 2/5 non-weight bearing bilaterally, first metatarsophalangeal joint range of motion 30 deg non-weight bearing bilaterally, flexible fifth digit hammer toe deformity noted to bilateral foot reducible with kelikian push up test Neurology: protective sensation intact to light touch bilateral digits one through five, vibratory sensation intact to first metatarsophalangeal joint bilaterally. Assessment: * Assessment: 1. T inea unguium - B35.1 (Primary) 2 . O ther hammer toe(s) (acquired), right foot - M20.41 3 . O ther hammer toe(s) (acquired), left foot - M20.42 ? 4 . P ain in right toe(s) - M79.674 5 . P ain in left toe(s) - M79.675 6 . U nspecified atherosclerosis of [place] arteries of extremities, bilateral legs - I70.203 7 . I ngrowing nail - L60.0 8 . L ocalized edema - R60.0 9 . C ellulitis of right toe - L03.031 1 0. C utaneous abscess of right foot - L02.611 Plan: * Treatment: 2. O ther hammer toe(s) (acquired), right foot Notes: The patient was educated regarding how to mechanically stabilize their deformity. The patient was given education about shoe recommendations specific for the condition. The patient was educated about custom orthotics and how appropriate shoes and orthotics can prevent further worsening of the deformity. The patient was educated about how bad shoe habits can worsen the condition. NSAIDS, P.T., injections and other conservative treatments were discussed. Both surgical and non surgical treatments were discussed, but conservative options were emphasized. 3. U nspecified atherosclerosis of [place] arteries of extremities, bilateral legs Notes: Patient educated on risks and aggravating factors of PVD, including conservative treatment options such as a diet and exercise regimen to aid in slowing progression of vascular disease 4. C utaneous abscess of right foot Notes: Incision and Drainage / I&D: Following skin prep, the abscess to right hallux periungual region was drained following adequate removal of offending nail border with slant back procedure. The infection was decompressed and approximately 3cc of serous and purulent fluid was expressed. Recommend daily bacitracin dressing changes for 2-3 days. Patient instructed to monitor the area. * Follow Up: 3 Months * Billing Information: * Visit Code: 12639 Office Visit, Est Pt., Level 3. * Procedure Codes: * Sign off status: Completed true * Provider: Hammad RIVERA Date: Generated for Kaitlynn suh/Re/Chio on: 0 10/09/2024 11:14 AM CDT History and Physical Notes * HPI (History of Present Illness) Category Sub-Category Detail Notes Category Not es HPI General care Patient presents to the office for at risk foot care. Patient states that their nails are thickened, elongated and painful. Patient states that it is aggravated by shoe gear. Onset is gradual. Patient denies being diabetic., Patient denies taking blood thinners., Date last seen by Dr. Acevedo was 12/2023., Initials mca Examination Category Sub-Category Detail Notes Category Not es Physical Examination Vascular: Dorsalis Pedis pulse noted at 1/4 right foot and 1/4 left foot and Posterior Tibial pulse noted at 1/4 right foot and 1/4 left foot, Capillary refill times noted to be less than three seconds x ten, Temperature gradient noted to be warm to cool to bilateral foot, pedal hair present to bilateral foot and no varicosities are noted Dermatologic: there are no open lesions, mild erythema noted to lateral nail fold of right foot second digit, no ecchymoses, nails are elongated thickened and dystrophic with subungual debris x ten, lateral nail border ingrown to right foot second digit with periungual erythema and mild serous drainage expressed with nail debridement Musculoskeletal: there is pain to palpation onto nail plate x ten, no calf pain noted bilaterally, arch height noted at 2/5 non-weight bearing bilaterally, first metatarsophalangeal joint range of motion 30 deg non-weight bearing bilaterally, flexible fifth digit hammer toe deformity noted to bilateral foot reducible with kelikian push up test Neurology: protective sensation intact to light touch bilateral digits one through five, vibratory sensation intact to first metatarsophalangeal joint bilaterally
--- OUTSIDE RECORDS SUMMARY | 2024-10-09 11:15 | XMS_ITS | Patient Health Record ---
Author Organization [facility] Address [address] [place], [place] [address] Care Team Providers Care Library Manager Name Role Phone Maritza Acevedo Unavailable Unavailable ELENITA RIVERA Unavailable [phone] Allergies Allergen (clinical drug ingredient) Drug/Non Drug Allergy documented on EMR Reaction Allergy Type Onset Date Status meperidine Demerol Unknown Drug Allergy 11/20/2015 activ e codeine Codeine Unknown Drug Allergy 11/20/2015 active morphine Morphine Unknown Drug Allergy Active Substance with penicillin structure and antibacterial mechanism of action (substance) Penicillins Unknown Drug Allergy 11/20/2015 active Reason For Referral No Information Medications Medication SIG (Take, Route, Frequency, Duration) Notes Start Date End Date Status ibuprofen 200 MG Oral Tablet [Motrin] ORAL ibuprofen 200 MG Oral Tablet [Motrin]Original Medicationibuprofen 200 MG Oral Tablet [Motrin] *Reorder from [facility] for eRx and Interaction Alerts* 11/20/19 16 Active omeprazole 10 MG Delayed Release Oral Capsule [Prilosec] ORAL omeprazole 10 MG Delayed Release Oral Capsule [Prilosec]Original Medicationomeprazole 10 MG Delayed Release Oral Capsule [Prilosec] *Reorder from [facility] for eRx and Interaction Alerts* 11/20/19 16 Active aspirin 81 MG Delayed Release Oral Tablet ORAL aspirin 81 MG Delayed Release Oral TabletOriginal Medicationaspirin 81 MG Delayed Release Oral Tablet *Reorder from [facility] for eRx and Interaction Alerts* 11/20/19 16 Active bisoprolol fumarate 5 MG / hydrochlorothiazide 6.25 MG Oral Tablet ORAL bisoprolol fumarate 5 MG / hydrochlorothiazide 6.25 MG Oral TabletOriginal Medicationbisoprolol fumarate 5 MG / hydrochlorothiazide 6.25 MG Oral Tablet *Reorder from [facility] for eRx and Interaction Alerts* 11/20/19 16 Active Simvastatin 20 MG Oral Tablet ORAL simvastatin 20 MG Oral TabletOriginal Medicationsimvastatin 20 MG Oral Tablet *Reorder from [facility] for eRx and Interaction Alerts* 11/20/19 16 Active acetaminophen 325 MG Oral Tablet [Tylenol] ORAL acetaminophen 325 MG Oral Tablet [Tylenol]Original Medicationacetaminophen 325 MG Oral Tablet [Tylenol] *Reorder from [facility] for eRx and Interaction Alerts* 11/20/19 16 Active Vital Signs Height-cm 160.02 cm 02/06/2024 Weight-kg 98.88 kg 02/06/2024 Height 63.00 in 02/06/2024 Weight 218 lbs 02/06/2024 BMI 38.61 kg/m2 02/06/2024 Encounters Encounter Location Date Provider Diagnosis [address] [id number] 02/06/2024 ELENITA RIVERA Other hammer toe(s) (acquired), right foot M20.41 ; Tinea unguium B35.1 ; Other hammer toe(s) (acquired), left foot M20.42 ; Pain in right toe(s) M79.674 ; Pain in left toe(s) M79.675 and Unspecified atherosclerosis of [place] arteries of extremities, bilateral legs I70.[address] [id number] 04/09/2024 ELENITA RIVERA Other hammer toe(s) (acquired), right foot M20.41 ; Tinea unguium B35.1 ; Other hammer toe(s) (acquired), left foot M20.42 ; Pain in right toe(s) M79.674 ; Pain in left toe(s) M79.675 ; Unspecified atherosclerosis of [place] arteries of extremities, bilateral legs I70.203 ; Ingrowing nail L60.0 ; Localized edema R60.0 ; Cellulitis of right toe L03.031 and Cutaneous abscess of right foot L02.611 Assessments Encounter Date Diagnosis (ICD Code) Assessment Notes Treatment Notes Treatment Clinical Notes Section Notes 02/06/2024 Other hammer toe(s) (acquired), right foot (ICD-10 [...] were discussed, but conservative options were emphasized. 02/06/2024 Tinea unguium (ICD-10 - B35.1) Aseptic debridement [...] regarding both OTC and prescription treatments. 04/09/2024 Tinea unguium (ICD-10 - B35.1) Aseptic [...] prescription treatments. 04/09/2024 Other hammer toe(s) (acquired), right foot [...] discussed, but conservative options were emphasized. 04/09/2024 Other hammer toe(s) (acquired), left foot (ICD-10 - M20.42) 02/06/2024 Other hammer toe(s) (acquired), left foot (ICD-10 - M20.42) 02/06/2024 Pain in right toe(s) (ICD-10 - M79.674) 04/09/2024 Pain in right toe(s) (ICD-10 - M79.674) 04/09/2024 Pain in left toe(s) (ICD-10 - M79.675) 02/06/2024 Pain in left toe(s) (ICD-10 - M79.675) 04/09/2024 Unspecified atherosclerosis of [place] arteries of extremities, bilateral legs (ICD-10 - I70.203) Patient educated on risks and aggravating factors of PVD, including conservative treatment options such as a diet and exercise regimen to aid in slowing progression of vascular disease 02/06/2024 Unspecified atherosclerosis of [place] arteries of extremities, bilateral legs (ICD-10 - [...] to monitor the area. Plan Of Treatment No Information Insurance Providers Payer Name Payer Address Payer Phone Subscriber Number Group Number Insured Name Patient Relationship to Insured Coverage Start Date Coverage End Date [facility] [address] [place] [id number] TRICIA BOSTON Self - patient is the insured Medical (General) History Medical History History ICD Code Arthritis skin cancer high blood pressure
--- OUTSIDE RECORDS SUMMARY | 2024-10-09 11:15 | XMS_ITS ---
Author Organization [facility] Address [address] [place], [place] [phone] Care Team Providers Care Timber Hand Name Role Phone Maritza Acevedo Unavailable Unavailable ELENITA RIVERA Unavailable [phone] REASON FOR VISIT *General care Encounters Encounter Location Date Provider Diagnosis [address] [id number] 06/11/2024 ELENITA RIVERA Plan Of Treatment No Information Progress Notes * TRICIA BOSTON ADOB:[birth year] (79 yo F)Acc No.[id number]:06/11/2024 Patient: Lyndsey COLEMAN TRICIA Austin Provider: Hammad RIVERA :1945 A ge:79 Y S ex:Female Date:06/11/2024 Address:[address] [facility] Subjective: * Chief Complaints: * 1 . *General care. * Medical History: Objective: * Vitals: Assessment: Plan: * Treatment: * Billing Information: * Visit Code: * Procedure Codes: * Electronic signature of CRISTEL RIVERA DPM on 10/09/2024 at 11:14 AM CDT Sign off status: Pending * Provider: Hammad RIVERA Date: 1 08/12/2023 Generated for Kaitlynn suh/Re/Joaquínitting on: 0 10/09/2024 11:14 AM CDT
--- OUTSIDE RECORDS SUMMARY | 2024-10-09 11:15 | XMS_ITS | Clinical Summary ---
Author Organization [facility] Address [facility] [place] [address] Care Team Providers Care Shearing Machine Tender Name Role Phone Asaf Thao MD Primary Care Provider [phone] Nj Szymanski MD Unavailable [phone] Allergies Active Allergy Reactions Criticality Noted Date Comments Codeine Unknown 04/18/2017 Penicillin V Unknown 04/18/2017 Medications omeprazole 40 MG capsule Take 40 mg by mouth daily. Active aspirin 81 MG chewable tablet Chew 81 mg by mouth daily. Active multivitamin tablet Take 1 tablet by mouth daily. Active CRANBERRY OR Active Misc Natural Products (TART BIRCH ADVANCED) Cap Active acidophilus-spor ogenes tablet Take by mouth 2 (two) times daily. Active Active Problems Problem Noted Date Diagnosed Date Dizziness 07/07/2017 GERD (gastroesophageal reflux disease) HLD (hyperlipidemia) Essential hypertension Social History Tobacco Use Types Packs/Day Years Used Date Smoking Tobacco: Never Alcohol Use Standard Drinks/Week Comments No 0 (1 standard drink = 0.6 oz pur e alcohol) Comments Unknown Sex and Gender Information Value Date Recorded Sex Assigned at Not on file Legal Sex Female 9:47 PM CDT Gender Identity Not on file Sexual Orientation Not on file Last Filed Vital Signs Vital Sign Reading Time Taken Comments Blood Pressure 128/82 04/26/2017 8:33 AM CDT Pulse 87 04/26/2017 8:33 AM CDT Temperature - - Respiratory Rate 16 04/26/2017 8:33 AM CDT Oxygen Saturation 99% 04/26/2017 8:33 AM CDT Inhaled Oxygen Concentration - - Weight 95.3 kg (210 lb) 04/26/2017 8:33 AM CDT Height 157.5 cm (5' 2 ) 04/26/2017 8:33 AM CDT Body Mass Index 38.41 04/26/2017 8:33 AM CDT Plan of Treatment Health Maintenance Due Date Last Done Comments Hepatitis C 1965 Zoster Vaccines (1 of 2) 1997 Annual Medicare Wellness Visit 01/05/2012 Dexa Scan (General) 01/05/2012 Pneumococcal Vaccine: 65+ Years (2 of 2 - PPSV23 or PCV20) 04/28/2019 04/28/2018 RSV Immunization or 60+ Years (1 - 1-dose 75+ series) 2022 COVID-19 Vaccine (3 - 2023-2 5 season) 2024 08/23/2020, 08/02/2020 DTaP, Tdap and Td Vaccines ( 2 - Td or Tdap) 08/05/2028 08/05/2018 Meningococcal B Vaccine Aged Out No l onger eligible based on patient's age to complete this topic Meningococcal Vaccine Aged Out No anshul dilcia eligible based on patient's age to complete this topic RSV Immunizations Under 20 Months Aged Out No longer eligible b ased on patient's age to complete this topic Insurance MEDICARE [employer] Member Subscriber Plan / Payer (Ef fective 2023-Present) Name:Michaela Mary Member ID:[id number] Relation to Subscriber:Self Name:Michaela Mary Subscriber ID:[id number] Payer ID:Not on file Group ID:[id number] N Type:Indemnity Address: [facility] [place] [address] Care Teams Shearing Machine Tender Relationship Specialty Start Date End Date Asaf Thao MD [address] [place] [address] PCP - General FAMILY PRACTICE 04/24/17 Nj Szymanski MD [address] [place] [address] Likely Retirement Administrator CARDIOVASCULAR DISEASE 04/24/17
--- OUTSIDE RECORDS SUMMARY | 2024-10-09 11:15 | XMS_ITS ---
Author Organization [facility] Address [address] [place], [place] [id number] Care Team Providers Care Dental Scheduling Coordinator Name Role Phone Maritza Acevdeo Unavailable Unavailable ELENITA RIVERA Unavailable [phone] Allergies Allergen (clinical drug ingredient) Drug/Non Drug Allergy documented on EMR Reaction Allergy Type Onset Date Status meperidine Demerol Unknown Drug Allergy 11/20/2015 activ e codeine Codeine Unknown Drug Allergy 11/20/2015 active morphine Morphine Unknown Drug Allergy Active Substance with penicillin structure and antibacterial mechanism of action (substance) Penicillins Unknown Drug Allergy 11/20/2015 active REASON FOR VISIT *Possible ingrown nail, arthritis ft Medications Medication SIG (Take, Route, Frequency, Duration) Notes Start Date End Date Status ibuprofen 200 MG Oral Tablet [Motrin] ORAL ibuprofen 200 MG Oral Tablet [Motrin]Original Medicationibuprofen 200 MG Oral Tablet [Motrin] *Reorder from [employer] for eRx and Interaction Alerts* 11/20/19 16 Active omeprazole 10 MG Delayed Release Oral Capsule [Prilosec] ORAL omeprazole 10 MG Delayed Release Oral Capsule [Prilosec]Original Medicationomeprazole 10 MG Delayed Release Oral Capsule [Prilosec] *Reorder from [employer] for eRx and Interaction Alerts* 11/20/19 16 Active aspirin 81 MG Delayed Release Oral Tablet ORAL aspirin 81 MG Delayed Release Oral TabletOriginal Medicationaspirin 81 MG Delayed Release Oral Tablet *Reorder from [employer] for eRx and Interaction Alerts* 11/20/19 16 Active bisoprolol fumarate 5 MG / hydrochlorothiazide 6.25 MG Oral Tablet ORAL bisoprolol fumarate 5 MG / hydrochlorothiazide 6.25 MG Oral TabletOriginal Medicationbisoprolol fumarate 5 MG / hydrochlorothiazide 6.25 MG Oral Tablet *Reorder from [facility] for eRx and Interaction Alerts* 11/20/19 16 Active acetaminophen 325 MG Oral Tablet [Tylenol] ORAL acetaminophen 325 MG Oral Tablet [Tylenol]Original Medicationacetaminophen 325 MG Oral Tablet [Tylenol] *Reorder from [facility] for eRx and Interaction Alerts* 11/20/19 16 Active Simvastatin 20 MG Oral Tablet ORAL simvastatin 20 MG Oral TabletOriginal Medicationsimvastatin 20 MG Oral Tablet *Reorder from [facility] for eRx and Interaction Alerts* 11/20/19 16 Active Vital Signs Height 63.00 in 02/06/2024 Weight 218 lbs 02/06/2024 BMI 38.61 kg/m2 02/06/2024 Height-cm 160.02 cm 02/06/2024 Weight-kg 98.88 kg 02/06/2024 Encounters Encounter Location Date Provider Diagnosis [facility] [address] [place], [place] [id number] 02/06/2024 ELENITA RIVERA Other hammer toe(s) (acquired), right foot M20.41 ; Tinea unguium B35.1 ; Other hammer toe(s) (acquired), left foot M20.42 ; Pain in right toe(s) M79.674 ; Pain in left toe(s) M79.675 and Unspecified atherosclerosis of [place] arteries of extremities, bilateral legs I70.203 Assessments Encounter Date Diagnosis (ICD Code) Assessment [...] educated regarding both OTC and prescription treatments. 02/06/2024 Other hammer toe(s) (acquired), left foot (ICD-10 - M20.42) 02/06/2024 Pain in right toe(s) (ICD-10 - M79.674) 02/06/2024 Pain in left toe(s) (ICD-10 - M79.675) 02/06/2024 Unspecified atherosclerosis of [place] arteries of extremities, bilateral legs (ICD-10 - I70.203) Patient educated on risks and aggravating factors of PVD, including conservative treatment options such as a diet and exercise regimen to aid in slowing progression of vascular disease Plan Of Treatment Treatment Notes Assessment Notes [...] OTC and prescription treatments. Unspecified atherosclerosis of [place] arteries of extremities, bilateral legs Patient educated on risks and aggravating factors of PVD, including conservative treatment options such as a diet and exercise regimen to aid in slowing progression of vascular disease Next Appt Details Follow Up: 3 Months, Reason: Progress Notes * TRICIA BOSTON ADOB:[birth year] (79 yo F)Acc No.[id number]:02/06/2024 Progress Notes Patient: TRICIA JOHNSON Provider: Hammad RIVERA :1945 A ge:79 Y S ex:Female Date:02/06/2024 Address:[address] [place] [address], [id number] Subjective: * Chief Complaints: * 1 . *Possible ingrown nail, arthritis ft. * HPI: H PI: New Complaint P atient presents for a new patient consultation., Patient complains of an issue to the bottoms of both feet being painful. Patient complains of an ingrown nail on the right 2nd digit. , MA: mca. * ROS: G eneral / Constitutional: Patient denies w eakness. R espiratory: Patient denies c hronic cough, shortness of breath, sputum production. C ardiovascular: Patient denies c hest pain, history of LA, irregular heartbeat. M usculoskeletal: Patient denies a rthritis, joint stiffness. P atient complains of h ammertoes. P eripheral Vascular: Patient denies b lanching of skin, cold extremities, decreased sensation in extremities. S kin: Patient complains of f ungal nails, nail changes, ingrown nails. N eurologic: Patient denies d izziness, gait abnormality, headache. * Medical History: A rthritis, Skin cancer, High blood pressure. * Medications: T aking Simvastatin 20 MG Oral Tablet ORAL , Notes to Pharmacist: simvastatin 20 MG Oral TabletOriginal Medicationsimvastatin 20 MG Oral Tablet *Reorder from [employer] for eRx and Interaction Alerts*, Taking acetaminophen 325 MG Oral Tablet [Tylenol] ORAL , Notes to Pharmacist: acetaminophen 325 MG Oral Tablet [Tylenol]Original Medicationacetaminophen 325 MG Oral Tablet [Tylenol] *Reorder from [facility] for eRx and Interaction Alerts*, Taking aspirin 81 MG Delayed Release Oral Tablet ORAL , Notes to Pharmacist: aspirin 81 MG Delayed Release Oral TabletOriginal Medicationaspirin 81 MG Delayed Release Oral Tablet *Reorder from [facility] for eRx and Interaction Alerts*, Taking bisoprolol fumarate 5 MG / hydrochlorothiazide 6.25 MG Oral Tablet ORAL , Notes to Pharmacist: bisoprolol fumarate 5 MG / hydrochlorothiazide 6.25 MG Oral TabletOriginal Medicationbisoprolol fumarate 5 MG / hydrochlorothiazide 6.25 MG Oral Tablet *Reorder from [facility] for eRx and Interaction Alerts*, Taking ibuprofen 200 MG Oral Tablet [Motrin] ORAL , Notes to Pharmacist: ibuprofen 200 MG Oral Tablet [Motrin]Original Medicationibuprofen 200 MG Oral Tablet [Motrin] *Reorder from [facility] for eRx and Interaction Alerts*, Taking omeprazole 10 MG Delayed Release Oral Capsule [Prilosec] ORAL , Notes to Pharmacist: omeprazole 10 MG Delayed Release Oral Capsule [Prilosec]Original Medicationomeprazole 10 MG Delayed Release Oral Capsule [Prilosec] *Reorder from [facility] for eRx and Interaction Alerts* * Allergies: D emerol: Allergy - Onset Date 11/20/2015, Codeine: Allergy - Onset Date 11/20/2015, Penicillins: Allergy - Onset Date 11/20/2015, Morphine: Allergy. Objective: * Vitals: S hoe Size: 8, Wt: 218 lbs, Wt-k.88 kg, Ht: 63.00 in, Ht-cm: 160.02 cm, BMI: 38.61 Index, Body Surface Area: 2.09. * Examination: P hysical Examination: V ascular: [...] noted Dermatologic: there are no open lesions, no signs of active clinical infection, no erythema noted, no ecchymoses, nails are elongated thickened and dystrophic with subungual debris x ten Musculoskeletal: there is pain to palpation onto [...] hammer toe(s) (acquired), left foot - M20.42 4 . P ain in right toe(s) - M79.674 5 . P ain in left toe(s) - M79.675 6 . U nspecified atherosclerosis of [place] arteries of extremities, bilateral legs - I70.203 Plan: * Treatment: 2. O ther hammer [...] were emphasized. 3. U nspecified atherosclerosis of [place] arteries of extremities, bilateral legs Notes: Patient educated on risks and aggravating factors of PVD, including conservative treatment options such as a diet and exercise regimen to aid in slowing progression of vascular disease * Procedure Codes: 1 1721 DEBRIDE NAIL, 6 OR MORE, Modifiers: Q8 * Follow Up: 3 Months * Billing Information: * Visit Code: 95773 Office Visit, New Pt., Level 3. Modifiers: 25 * Procedure Codes: 92223 DEBRIDE NAIL, 6 OR MORE. Modifiers: Q8 * Sign off status: Completed true * Provider: Hammad RIVERA Date: 0 02/06/2024 Generated for Kaitlynn suh/Re/Chio on: 0 10/09/2024 11:14 AM CDT History and Physical Notes * HPI (History of Present Illness) Category Sub-Category Detail Notes Category Not es HPI New Complaint Patient presents for a new patient consultation., Patient complains of an issue to the bottoms of both feet being painful. Patient complains of an ingrown nail on the right 2nd digit. , MA: mca Examination Category Sub-Category Detail Notes Category [...] noted Dermatologic: there are no open lesions, no signs of active clinical infection, no erythema noted, no ecchymoses, nails are elongated thickened and dystrophic with subungual debris x ten Musculoskeletal: there is pain to palpation onto [...]
[2024-10-09 11:18] LABS: Bacteria Urine 4+ /hpf; RBC Urine Unable to determine /hpf (0-2); Squamous Epithelial Cell Urine None seen /hpf (Few); WBC Urine >100 /hpf (0-3)
== END 2024-10-09 10:40 | disposition home or self-care (01) ==
LOC: CHSLAB 10:40
PROVIDERS: PCP Nurse Practitioner Family; Visit Provider Nurse Practitioner Family
DX: R30.0 Dysuria (principal); Z87.898 Personal history of other specified conditions
CPT/HCPCS: 81001; 87086; 87186

== ENCOUNTER 2024-11-06 08:55 | Outpatient (CLI) | payer MEDICARE, SELFPAY ==
--- OUTSIDE RECORDS SUMMARY | 2024-11-06 08:58 | XMS_ITS | Patient Health Record ---
Author Organization [facility] Address [address] [place], [place] [id number] Care Team Providers Care Voice Pathologist Name Role Phone Maritza Acevedo Unavailable Unavailable ELENITA RIVERA Unavailable [phone] Allergies Allergen (clinical drug ingredient) Drug/Non Drug [...] 200 MG Oral Tablet [Motrin] *Reorder from [employer] for eRx and Interaction Alerts* 11/20/19 16 Active omeprazole 10 MG Delayed Release Oral Capsule [Prilosec] ORAL omeprazole 10 MG Delayed Release Oral Capsule [Prilosec]Original Medicationomeprazole 10 MG Delayed Release Oral Capsule [Prilosec] *Reorder from [employer] for eRx and Interaction Alerts* 11/20/19 16 Active aspirin 81 MG Delayed Release Oral Tablet ORAL aspirin 81 MG Delayed Release Oral TabletOriginal Medicationaspirin 81 MG Delayed Release Oral Tablet *Reorder from [employer] for eRx and Interaction Alerts* 11/20/19 16 Active bisoprolol fumarate 5 MG / hydrochlorothiazide 6.25 MG Oral Tablet ORAL bisoprolol fumarate 5 MG / hydrochlorothiazide 6.25 MG Oral TabletOriginal Medicationbisoprolol fumarate 5 MG / hydrochlorothiazide 6.25 MG Oral Tablet *Reorder from [facility] for eRx and Interaction Alerts* 11/20/19 16 Active Simvastatin 20 MG Oral Tablet ORAL simvastatin 20 MG Oral TabletOriginal Medicationsimvastatin 20 MG Oral Tablet *Reorder from [facility] for eRx and Interaction Alerts* 11/20/19 16 Active acetaminophen 325 MG Oral Tablet [Tylenol] ORAL acetaminophen 325 MG Oral Tablet [Tylenol]Original Medicationacetaminophen 325 MG Oral Tablet [Tylenol] *Reorder from [facility] for eRx and Interaction Alerts* 11/20/19 16 Active Vital Signs Height-cm 160.02 cm 02/06/2024 Weight-kg 98.88 kg 02/06/2024 Height 63.00 in 02/06/2024 Weight 218 lbs 02/06/2024 BMI 38.61 kg/m2 02/06/2024 Encounters Encounter Location Date Provider Diagnosis [address] [id number] 02/06/2024 ELENITA RIVERA Other hammer toe(s) (acquired), right foot M20.41 ; Tinea unguium B35.1 ; Other hammer toe(s) (acquired), left foot M20.42 ; Pain in right toe(s) M79.674 ; Pain in left toe(s) M79.675 and Unspecified atherosclerosis of [place] arteries of extremities, bilateral legs I70.[address] [id number] 04/09/2024 ELENITA RIVERA Other hammer toe(s) (acquired), right foot M20.41 ; Tinea unguium B35.1 ; Other hammer toe(s) (acquired), left foot M20.42 ; Pain in right toe(s) M79.674 ; Pain in left toe(s) M79.675 ; Unspecified atherosclerosis of [place] arteries of extremities, bilateral legs I70.203 ; [...] (ICD-10 - M79.675) 04/09/2024 Unspecified atherosclerosis of [place] arteries of extremities, bilateral legs (ICD-10 - I70.203) Patient educated on risks and aggravating factors of PVD, including conservative treatment options such as a diet and exercise regimen to aid in slowing progression of vascular disease 02/06/2024 Unspecified atherosclerosis of [place] arteries of extremities, bilateral legs (ICD-10 - [...] Insured Coverage Start Date Coverage End Date [facility] [address] [place] [id number] TRICIA BOSTON Self - patient is the insured Medical (General) History Medical History History ICD Code Arthritis skin cancer high blood pressure
--- OUTSIDE RECORDS SUMMARY | 2024-11-06 08:58 | XMS_ITS | Clinical Summary ---
Author Organization [facility] Address [facility] [place] [address] Care Team Providers Care Inspection And Testing Supervisor Name Role Phone Nj Szymanski MD Unavailable [phone] Maritza Acevedo SCIENTIFIC PROGRAMMER ANALYST Primary Care Provider [phone] Allergies Active Allergy Reactions Criticality Noted Date [...] by mouth 2 (two) times daily. Active pantoprazole EC (PROTONIX) 40 MG tablet Take 1 tablet (40 mg total) by mouth every morning. 08/25/2024 Active metoprolol succinate ER (TOPROL-XL) 50 MG 24 hr tablet Take 1 tablet (50 mg total) by mouth 2 (two) times daily. 07/28/2024 Active meloxicam (MOBIC) 15 MG tablet Take 1 tablet (15 mg total) by mouth daily. 08/20/2024 Active lisinopril (PRINIVIL) 10 MG tablet Take 1 tablet (10 mg total) by mouth daily. 07/28/2024 Active atorvastatin (LIPITOR) 20 MG tablet Take 1 tablet (20 mg total) by mouth daily. 08/19/2024 Active Active Problems Problem Noted Date Diagnosed Date Dizziness 07/07/2017 GERD (gastroesophageal reflux disease) HLD (hyperlipidemia) Essential hypertension Encounters Date Type Department Care Team Description 10/16/2024 6:00 PM CDT - 10/16/2024 7:18 PM CDT Emergency [place] [facility] [address] [place] [address] Dileep Muller MD Leg Pain; Leg Swelling Discharge Disposition: Home or Self Care (Routine Discharge) 10/16/2024 Travel from Last 3 Months Social History Tobacco Use Types Packs/Day Years Used Date Smoking Tobacco: Never Alcohol Use Standard Drinks/Week Comments No 0 (1 standard drink = 0.6 oz pur e alcohol) Comments Unknown Sex and Gender Information Value Date Recorded Sex Assigned at Female 10/16/2024 6:15 PM CDT Legal Sex Female 9:47 PM CDT Gender Identity Not on file Sexual Orientation Not on file Last Filed Vital Signs Vital Sign Reading Time Taken Comments Blood Pressure 183/88 10/16/2024 7:02 PM CDT Pulse 75 10/16/2024 6:04 PM CDT Temperature 36.2 C (97.2 F) 10/16/2024 6:04 PM CDT Respiratory Rate 18 10/16/2024 6:04 PM CDT Oxygen Saturation 97% 10/16/2024 7:02 PM CDT Inhaled Oxygen Concentration - - Weight 101.1 kg (222 lb 12.8 oz) 10/16/2024 6:04 PM CDT Height 157.5 cm (5' 2 ) 10/16/2024 6:04 PM CDT Body Mass Index 40.75 10/16/2024 6:04 PM CDT Plan of Treatment Health Maintenance Due Date Last Done Comments Hepatitis C 1963 Annual Medicare Wellness Visit 01/05/2012 Dexa Scan (General) 01/05/2012 COVID-19 Vaccine ( season) 2024 03/16/2024, 03/24/2023, 04/29/2022, Additional history exists DTaP, Tdap and Td Vaccines (3 - Td or Tdap) 05/19/2033 05/19/2023, 08/05/2018 Pneumococcal Vaccine: 50+ Years Completed 04/28/2018, 03/20/2018, 04/28/2014 Zoster Vaccines Completed 07/23/2022, 05/19/2022 RSV Immunization or 60+ Years Completed 03/24/2023 Meningococcal B Vaccine Aged Out No l onger eligible based on patient's age to complete this topic Meningococcal Vaccine Aged Out No anshul dilcia eligible based on patient's age to complete this topic RSV Immunizations Under 20 Months Aged Out No longer eligible based on patient's age to complete this topic Procedures Procedure Name Priority Date/Time Associated Diagnosis Comments COMPREHENSIVE METABOLIC PANEL STAT 10/16/2024 6:49 PM CDT CBC W/DIFF AUTOMATED STAT 10/16/2024 6:49 PM CDT from Last 3 Months Results * (ABNORMAL) COMPREHENSIVE METABOLIC PANEL (10/16/2024 6:49 PM CDT) SODIUM S/P/B 139 136 - 145 MMOL/L 10/16/2024 7:10 PM CDT [facility] POTASSIUM S/P/B 4.2 3.5 - 5.1 MMOL/L 10/16/2024 7:10 PM CDT [facility] CHLORIDE S/P/B 101 98 - 107 MMOL/L 10/16/2024 7:10 PM CDT [facility] CO2 31.9 21.0 - 32.0 MMOL/L 10/16/2024 7:10 PM CDT [facility] GLUCOSE 111(H) 70 - 99 MG/DL 10/16/2024 7:10 PM CDT [facility] Comment: FASTING GLUCOSE 100 TO 125 MG/DL IS CONSISTENT WITH IMPAIRED FASTING GLUCOSE. FASTING GLUCOSE >125 MG/DL IS CONSISTENT WITH DIABETES. RANDOM GLUCOSE >200 MG/DL WITH HYPERGLYCEMIC SYMPTOMS IS CONSISTENT WITH DIABETES. PER ADA GUIDELINES BUN 21 6 - 24 MG/DL 10/16/2024 7:10 PM CDT [facility] CREATININE S/P/B 1.05(H) 0.55 - 1.02 MG/DL 10/16/2024 7:10 PM CDT [facility] CALCIUM S/P/B 9.6 8.4 - 10.5 MG/DL 10/16/2024 7:10 PM CDT [facility] BILIRUBIN TOTAL S/P/B 0.6 0.2 - 1.0 MG/DL 10/16/2024 7:10 PM CDT [facility] Comment: THIS ASSAY IS NOT RECOMMENDED FOR PATIENTS UNDERGOING TREATMENT WITH ELTROMBOPAG DUE TO THE POTENTIAL FOR FALSELY ELEVATED RESULTS. ALKALINE PHOSPHATASE S/P/B 98 55 - 142 U/L 10/16/2024 7:10 PM CDT [facility] AST 23 15 - 37 U/L 10/16/2024 7:10 PM CDT [facility] ALT 27 14 - 59 U/L 10/16/2024 7:10 PM CDT [facility] TOTAL PROTEIN S/P/B 7.6 6.4 - 8.2 G/DL 10/16/2024 7:10 PM CDT [facility] ALBUMIN S/P/B 3.9 3.4 - 5.0 G/DL 10/16/2024 7:10 PM CDT [facility] ANION GAP 6.1 5.0 - 15.0 MMOL/L 10/16/2024 7:10 PM CDT [facility] OSMOLALITY (CALC) 292 MOSM/KG 025 7:10 PM CDT [facility] Comment:REFERENCE RANGE NOT ESTABLISHED GFR ESTIMATE 55(L) >89 ML/MIN/1. 73 M2 10/16/2024 7:10 PM CDT [facility] GFR NOTES GFR REFERENCE S: 10/16/2024 7:10 PM T [facility] Comment: THE ESTIMATED GFR IS CALCULATED USING THE 2020 CKD-EPI EQUATION. THE FOLLOWING CATEGORIES FOR GRADING RENAL FUNCTION ARE RECOMMENDED BY THE INTERNATIONAL SOCIETY OF NEPHROLOGY (KDIGO 2012 CLINICAL PRACTICE GUIDELINE). G1,NORMAL OR HIGH: >89 ml/min/1.73 m2 G2,MILDLY DECREASED: 60-89 ml/min/1.73 m2 G3A,MILDLY TO MODERATELY DECREASED: 45-59 ml/min/1.73 m2 G3B,MODERATELY TO SEVERELY DECREASED: 30-44 ml/min/1.73 m2 G4,SEVERELY DECREASED: 15-29 ml/min/1.73 m2 G5,KIDNEY FAILURE: <15 ml/min/1.73 m2 10/16/2024 6:49 PM CDT Dileep Muller MD LABORATORY Final Result [facility] [address] [place] [address], * (ABNORMAL) CBC W/DIFF AUTOMATED (10/16/2024 6:49 PM CDT) WBC 10.01 4.00 - 10.80 x10'3/uL 10/16/2024 6:56 PM CDT [facility] RBC 4.96 4.10 - 5.40 x10'6/uL 10/16/2024 6:56 PM CDT [facility] HGB 14.3 12.0 - 16.0 G/DL 10/16/2024 6:56 PM CDT [facility] HCT 43.5 36.0 - 47.0 % 10/16/2024 6:56 PM CDT [facility] MCV 87.7 78.0 - 100.0 FL 10/16/2024 6:56 PM CDT [facility] MCH 28.8 27.0 - 31.0 PG 10/16/2024 6:56 PM CDT [facility] MCHC 32.9(L) 33.0 - 36.0 G/DL 10/16/2024 6:56 PM CDT [facility] RDW 13.1 11.5 - 14.5 % 10/16/2024 6:56 PM CDT [facility] PLT 180 150 - 350 x10'3/uL 10/16/2024 6:56 PM CDT [facility] MPV 9.7 7.4 - 10.4 FL 10/16/2024 6:56 PM CDT [facility] CBC COMMENT NORMAL REFERENCE RANGE NOT ESTABLISHED FOR THE PROPORTIONAL LEUKOCYTE DIFFERENTIAL. 10/16/2024 6:56 PM CDT [facility] NEUTROPHILS % 57.2 % 10/16/2024 6:56 PM CDT [facility] LYMPHOCYTES % 29.4 % 10/16/2024 6:56 PM CDT [facility] MONOCYTES % 7.2 % 10/16/2024 6:56 PM CDT [facility] EOSINOPHILS % 5.0 % 10/16/2024 6:56 PM CDT [facility] BASOPHILS % 0.9 % 10/16/2024 6:56 PM CDT [facility] IMMATURE GRANS % 0.3 % 10/17/19 25 6:56 PM CDT [facility] NRBC % 0.0 % 10/16/2024 6:56 PM CDT [facility] ABS. NEUTROPHILS 5.73 1.60 - 8.30 x10'3/uL 10/16/2024 6:56 PM CDT [facility] ABS. LYMPHOCYTES 2.94 0.80 - 4.70 x10'3/uL 10/16/2024 6:56 PM CDT [facility] ABS. MONOCYTES 0.72 0.00 - 1.50 x10'3/uL 10/16/2024 6:56 PM CDT [facility] ABS. EOSINOPHILS 0.50(H) 0.00 - 0.40 x10'3/uL 10/16/2024 6:56 PM CDT [facility] ABS. BASOPHILS 0.09 0.00 - 0.20 x10'3/uL 10/16/2024 6:56 PM CDT [facility] ABS. IMMATURE GRANULOCYTES 0.03 0.00 - 0.03 x10'3/uL 10/16/2024 6:56 PM CDT [facility] ABS. NUCLEATED RBC'S 0.00 0.00 - 0.01 x10'3/uL 10/16/2024 6:56 PM CDT [facility] 10/16/2024 6:49 PM CDT us Dileep Muller MD LABORATORY Final Result [facility] [address] [place] [address], from Last 3 Months Insurance [employer] Member Subscriber Plan / Payer (Ef fective 2023-Present) Name:Michaela Mary ,558 Relation to Subscriber:Self Name:Michaela Mary Subscriber ID:[id number] Payer ID:Not on file Group ID:[id number] N Type:Indemnity Address: [address] [place] [address] Care Teams Inspection And Testing Supervisor Relationship Specialty Start Date End Date Maritza Acevedo FNP [address] [place] [address] PCP - General NURSE PRACTITIONER 10/16/24 Nj Szymanski MD [address] [place] [address] [facility] Life Director CARDIOVASCULAR DISEASE 04/24/17
--- OUTSIDE RECORDS SUMMARY | 2024-11-06 08:58 | XMS_ITS ---
Author Organization [facility] Address [address] [place], [place] [id number] Care Team Providers Care Duck Operator Name Role Phone Maritza Acevedo Unavailable Unavailable ELENITA RIVERA Unavailable [phone] REASON FOR VISIT *General care Encounters Encounter Location Date Provider Diagnosis [address] [id number] 06/11/2024 ELENITA RIVERA Plan Of Treatment No Information Progress Notes * TRICIA BOSTON ADOB:[birth year] (79 yo F)Acc No.[id number]:06/11/2024 Patient: Lyndsey COLEMAN TRICIA [place] Provider: Hammad RIVERA :1945 A ge:79 Y S ex:Female Date:06/11/2024 Address:[address] [facility] Subjective: * Chief Complaints: * 1 . *General care. * Medical History: Objective: * Vitals: Assessment: Plan: * Treatment: * Billing Information: * Visit Code: * Procedure Codes: * Electronic signature of CRISTEL RIVERA DPM on 11/06/2024 at 08:58 AM CDT Sign off status: Pending * Provider: Hammad RIVERA Date: 1 08/12/2023 Generated for Kaitlynn suh/Re/Joaquínitting on: 0 11/06/2024 08:58 AM CDT
--- OUTSIDE RECORDS SUMMARY | 2024-11-06 08:58 | XMS_ITS ---
Author Organization [facility] Address [address] [place], [place] [id number] Care Team Providers Care Microbiology Analyst Name Role Phone Maritza Acevedo Unavailable Unavailable ELENITA RIVERA Unavailable [phone] Allergies Allergen (clinical drug ingredient) Drug/Non Drug [...] 200 MG Oral Tablet [Motrin] *Reorder from [employer] for eRx and Interaction Alerts* 11/20/19 16 Active omeprazole 10 MG Delayed Release Oral Capsule [Prilosec] ORAL omeprazole 10 MG Delayed Release Oral Capsule [Prilosec]Original Medicationomeprazole 10 MG Delayed Release Oral Capsule [Prilosec] *Reorder from [employer] for eRx and Interaction Alerts* 11/20/19 16 Active aspirin 81 MG Delayed Release Oral Tablet ORAL aspirin 81 MG Delayed Release Oral TabletOriginal Medicationaspirin 81 MG Delayed Release Oral Tablet *Reorder from [employer] for eRx and Interaction Alerts* 11/20/19 16 Active bisoprolol fumarate 5 MG / hydrochlorothiazide 6.25 MG Oral Tablet ORAL bisoprolol fumarate 5 MG / hydrochlorothiazide 6.25 MG Oral TabletOriginal Medicationbisoprolol fumarate 5 MG / hydrochlorothiazide 6.25 MG Oral Tablet *Reorder from [facility] for eRx and Interaction Alerts* 11/20/19 16 Active acetaminophen 325 MG Oral Tablet [Tylenol] ORAL acetaminophen 325 MG Oral Tablet [Tylenol]Original Medicationacetaminophen 325 MG Oral Tablet [Tylenol] *Reorder from [facility] for eRx and Interaction Alerts* 11/20/19 16 Active Simvastatin 20 MG Oral Tablet ORAL simvastatin 20 MG Oral TabletOriginal Medicationsimvastatin 20 MG Oral Tablet *Reorder from [facility] for eRx and Interaction Alerts* 11/20/19 16 Active Vital Signs Height 63.00 in 02/06/2024 Weight 218 lbs 02/06/2024 BMI 38.61 kg/m2 02/06/2024 Height-cm 160.02 cm 02/06/2024 Weight-kg 98.88 kg 02/06/2024 Encounters Encounter Location Date Provider Diagnosis [place] [address] [place], [place] [id number] 02/06/2024 ELENITA RIVERA Other hammer toe(s) (acquired), right foot M20.41 ; Tinea unguium B35.1 ; Other hammer toe(s) (acquired), left foot M20.42 ; Pain in right toe(s) M79.674 ; Pain in left toe(s) M79.675 and Unspecified atherosclerosis of [place] arteries of extremities, bilateral legs I70.203 Assessments [...] (ICD-10 - M79.675) 02/06/2024 Unspecified atherosclerosis of [place] arteries of extremities, bilateral legs (ICD-10 - [...] OTC and prescription treatments. Unspecified atherosclerosis of [place] arteries of extremities, bilateral legs Patient educated on risks and aggravating factors of PVD, including conservative treatment options such as a diet and exercise regimen to aid in slowing progression of vascular disease Next Appt Details Follow Up: 3 Months, Reason: Progress Notes * TRICIA BOSTON ADOB:[birth year] (79 yo F)Acc No.[id number]:02/06/2024 Progress Notes Patient: TRICIA JOHNSON Provider: Hammad RIVERA :1945 A ge:79 Y S ex:Female Date:02/06/2024 Address:[address] [place] [address], [facility] Subjective: * Chief Complaints: * 1 . [...] Patient denies c hest pain, history of [place], irregular heartbeat. M usculoskeletal: Patient denies a [...] Medicationsimvastatin 20 MG Oral Tablet *Reorder from [employer] for eRx and Interaction Alerts*, Taking acetaminophen 325 MG Oral Tablet [Tylenol] ORAL , Notes to Pharmacist: acetaminophen 325 MG Oral Tablet [Tylenol]Original Medicationacetaminophen 325 MG Oral Tablet [Tylenol] *Reorder from [facility] for eRx and Interaction Alerts*, Taking aspirin 81 MG Delayed Release Oral Tablet ORAL , Notes to Pharmacist: aspirin 81 MG Delayed Release Oral TabletOriginal Medicationaspirin 81 MG Delayed Release Oral Tablet *Reorder from [facility] for eRx and Interaction Alerts*, Taking bisoprolol fumarate 5 MG / hydrochlorothiazide 6.25 MG Oral Tablet ORAL , Notes to Pharmacist: bisoprolol fumarate 5 MG / hydrochlorothiazide 6.25 MG Oral TabletOriginal Medicationbisoprolol fumarate 5 MG / hydrochlorothiazide 6.25 MG Oral Tablet *Reorder from [facility] for eRx and Interaction Alerts*, Taking ibuprofen 200 MG Oral Tablet [Motrin] ORAL , Notes to Pharmacist: ibuprofen 200 MG Oral Tablet [Motrin]Original Medicationibuprofen 200 MG Oral Tablet [Motrin] *Reorder from [facility] for eRx and Interaction Alerts*, Taking omeprazole 10 MG Delayed Release Oral Capsule [Prilosec] ORAL , Notes to Pharmacist: omeprazole 10 MG Delayed Release Oral Capsule [Prilosec]Original Medicationomeprazole 10 MG Delayed Release Oral Capsule [Prilosec] *Reorder from [facility] for eRx and Interaction Alerts* [...] M79.675 6 . U nspecified atherosclerosis of [place] arteries of extremities, bilateral legs - I70.203 [...] were emphasized. 3. U nspecified atherosclerosis of [place] arteries of extremities, bilateral legs Notes: Patient educated on risks and aggravating factors of PVD, including conservative treatment options such as a diet and exercise regimen to aid in slowing progression of vascular disease * Procedure Codes: 1 1721 DEBRIDE NAIL, 6 OR MORE, Modifiers: Q8 * Follow Up: 3 Months * Billing Information: * Visit Code: 24780 Office Visit, New Pt., Level 3. Modifiers: 25 * Procedure Codes: 33297 DEBRIDE NAIL, 6 OR MORE. Modifiers: Q8 * Sign off status: Completed true * Provider: Hammad RIVERA Date: 0 02/06/2024 Generated for Kaitlynn suh/Re/Chio on: 0 11/06/2024 08:57 AM CDT History and Physical Notes * [...]
--- OUTSIDE RECORDS SUMMARY | 2024-11-06 08:58 | XMS_ITS ---
Author Organization [facility] Address [address] [place], [place] [address] Care Team Providers Care Process Assistant Name Role Phone Maritza Acevedo Unavailable Unavailable ELENITA RIVERA Unavailable [phone] Allergies Allergen (clinical drug ingredient) Drug/Non Drug [...] 200 MG Oral Tablet [Motrin] *Reorder from [employer] for eRx and Interaction Alerts* 11/20/19 16 Active omeprazole 10 MG Delayed Release Oral Capsule [Prilosec] ORAL omeprazole 10 MG Delayed Release Oral Capsule [Prilosec]Original Medicationomeprazole 10 MG Delayed Release Oral Capsule [Prilosec] *Reorder from [employer] for eRx and Interaction Alerts* 11/20/19 16 Active aspirin 81 MG Delayed Release Oral Tablet ORAL aspirin 81 MG Delayed Release Oral TabletOriginal Medicationaspirin 81 MG Delayed Release Oral Tablet *Reorder from [employer] for eRx and Interaction Alerts* 11/20/19 16 Active bisoprolol fumarate 5 MG / hydrochlorothiazide 6.25 MG Oral Tablet ORAL bisoprolol fumarate 5 MG / hydrochlorothiazide 6.25 MG Oral TabletOriginal Medicationbisoprolol fumarate 5 MG / hydrochlorothiazide 6.25 MG Oral Tablet *Reorder from [facility] for eRx and Interaction Alerts* 11/20/19 16 Active acetaminophen 325 MG Oral Tablet [Tylenol] ORAL acetaminophen 325 MG Oral Tablet [Tylenol]Original Medicationacetaminophen 325 MG Oral Tablet [Tylenol] *Reorder from [facility] for eRx and Interaction Alerts* 11/20/19 16 Active Simvastatin 20 MG Oral Tablet ORAL simvastatin 20 MG Oral TabletOriginal Medicationsimvastatin 20 MG Oral Tablet *Reorder from [facility] for eRx and Interaction Alerts* 11/20/19 16 Active Encounters Encounter Location Date Provider Diagnosis [address] [id number] 04/09/2024 ELENITA RIVERA Other hammer toe(s) (acquired), right foot M20.41 ; Tinea unguium B35.1 ; Other hammer toe(s) (acquired), left foot M20.42 ; Pain in right toe(s) M79.674 ; Pain in left toe(s) M79.675 ; Unspecified atherosclerosis of [place] arteries of extremities, bilateral legs I70.203 ; [...] (ICD-10 - M79.675) 04/09/2024 Unspecified atherosclerosis of [place] arteries of extremities, bilateral legs (ICD-10 - [...] OTC and prescription treatments. Unspecified atherosclerosis of [place] arteries of extremities, bilateral legs Patient educated [...] TRICIA BOSTON ADOB:[birth year] (79 yo F)Acc No.[id number]:04/09/2024 Patient: TRICIA JOHNSON A Provider: Hammad RIVERA :1945 A ge:79 Y S ex:Female Date:04/09/2024 Address:[address] [place], [place] [id number] Subjective: * Chief Complaints: * 1 . [...] Patient denies c hest pain, history of [place], irregular heartbeat. M usculoskeletal: Patient denies a [...] Medicationsimvastatin 20 MG Oral Tablet *Reorder from [facility] for eRx and Interaction Alerts*, Taking acetaminophen 325 MG Oral Tablet [Tylenol] ORAL , Notes to Pharmacist: acetaminophen 325 MG Oral Tablet [Tylenol]Original Medicationacetaminophen 325 MG Oral Tablet [Tylenol] *Reorder from [facility] for eRx and Interaction Alerts*, Taking aspirin 81 MG Delayed Release Oral Tablet ORAL , Notes to Pharmacist: aspirin 81 MG Delayed Release Oral TabletOriginal Medicationaspirin 81 MG Delayed Release Oral Tablet *Reorder from [facility] for eRx and Interaction Alerts*, Taking bisoprolol fumarate 5 MG / hydrochlorothiazide 6.25 MG Oral Tablet ORAL , Notes to Pharmacist: bisoprolol fumarate 5 MG / hydrochlorothiazide 6.25 MG Oral TabletOriginal Medicationbisoprolol fumarate 5 MG / hydrochlorothiazide 6.25 MG Oral Tablet *Reorder from [facility] for eRx and Interaction Alerts*, Taking ibuprofen 200 MG Oral Tablet [Motrin] ORAL , Notes to Pharmacist: ibuprofen 200 MG Oral Tablet [Motrin]Original Medicationibuprofen 200 MG Oral Tablet [Motrin] *Reorder from [facility] for eRx and Interaction Alerts*, Taking omeprazole 10 MG Delayed Release Oral Capsule [Prilosec] ORAL , Notes to Pharmacist: omeprazole 10 MG Delayed Release Oral Capsule [Prilosec]Original Medicationomeprazole 10 MG Delayed Release Oral Capsule [Prilosec] *Reorder from [facility] for eRx and Interaction Alerts* * [...] M79.675 6 . U nspecified atherosclerosis of [place] arteries of extremities, bilateral legs - I70.203 [...] were emphasized. 3. U nspecified atherosclerosis of [place] arteries of extremities, bilateral legs Notes: Patient [...] Months * Billing Information: * Visit Code: 84106 Office Visit, Est Pt., Level 3. * Procedure Codes: * Sign off status: Completed true * Provider: Hammad RIVERA Date: Generated for Kaitlynn suh/Re/Chio on: 0 11/06/2024 [...]
[2024-11-06 09:49] LABS: Add Urine Microscopic? YES; Appearance Urine Clear (Clear); Bilirubin Urine Negative (Negative); Blood Urine Negative (Negative); Color Urine Light Yellow (Yellow); Glucose Urine UA Negative (Negative); Ketones Urine Negative (Negative); Leukocyte Esterase Ur 1+ (Negative); Nitrate Urine Negative (Negative); Protein Urine Negative (Negative); Urobilinogen Urine 0.2 mg/dL (0.2-1.0)
[2024-11-06 09:56] LABS: RBC Urine None seen /hpf (0-2)
[2024-11-06 09:57] LABS: Bacteria Urine Trace /hpf; Squamous Epithelial Cell Urine Few /hpf (Few)
[2024-11-06 10:20] LABS: Anion Gap 6 mmol/L (4-12); Blood Urea Nitrogen 15 mg/dL (7-17); Carbon Dioxide 28 mmol/L (22-30); Chloride 105 mmol/L (98-107); Estimated Glomerular Filt Rate 55; Glucose 109 mg/dL (65-110); Osmolality Calculated 289 mOsm/kg (285-295); Phosphorus 3.6 mg/dL (2.5-4.5); Sodium 139 mmol/L (137-145)
== END 2024-11-06 08:56 | disposition home or self-care (01) ==
PROVIDERS: PCP Nurse Practitioner Family; Visit Provider Nurse Practitioner Family
DX: R79.89 Other specified abnormal findings of blood chemistry (principal); R39.9 Unspecified symptoms and signs involving the genitourinary system; N39.0 Urinary tract infection, site not specified
CPT/HCPCS: 36415; 80069; 81001; 87086; 87088

== ENCOUNTER 2024-12-02 10:12 | Outpatient (CLI) | payer MEDICARE, SELFPAY ==
--- OUTSIDE RECORDS SUMMARY | 2024-12-02 10:20 | XMS_ITS ---
Author Organization [facility] Address [address] [place], [place] [id number] Care Team Providers Care Induction Machine Operator Name Role Phone Maritza Acevedo Unavailable Unavailable ELENITA RIVERA Unavailable [phone] REASON FOR VISIT *General care Encounters Encounter Location Date Provider Diagnosis [address] [id number] 06/11/2024 ELENITA RIVERA Plan Of Treatment No Information Progress Notes * TRICIA BOSTON ADOB:[birth year] (79 yo F)Acc No.[id number]:06/11/2024 Patient: Lyndsey COLEMAN TRICIA [place] Provider: Hammad RIVERA :1945 A ge:79 Y S ex:Female Date:06/11/2024 Address[address] [facility] Subjective: * Chief Complaints: * 1 . *General care. * Medical History: Objective: * Vitals: Assessment: Plan: * Treatment: * Billing Information: * Visit Code: * Procedure Codes: * Electronic signature of CRISTEL RIVERA DPM on 12/02/2024 at 10:20 AM CDT Sign off status: Pending * Provider: Hammad RIVERA Date: 1 08/12/2023 Generated for Kaitlynn suh/Re/Joaquínitting on: 0 12/02/2024 10:20 AM CDT
--- OUTSIDE RECORDS SUMMARY | 2024-12-02 10:21 | XMS_ITS | Patient Health Record ---
Author Organization [facility] Address [address] [place], [place] [id number] Care Team Providers Care Mechanical Energy Engineer Name Role Phone Maritza Acevedo Unavailable Unavailable ELENITA RIVERA Unavailable [phone] Allergies Allergen (clinical drug ingredient) Drug/Non Drug [...] 200 MG Oral Tablet [Motrin] *Reorder from [facility] for eRx and Interaction Alerts* 11/20/19 16 Active omeprazole 10 MG Delayed Release Oral Capsule [Prilosec] ORAL omeprazole 10 MG Delayed Release Oral Capsule [Prilosec]Original Medicationomeprazole 10 MG Delayed Release Oral Capsule [Prilosec] *Reorder from [facility] for eRx and Interaction Alerts* 11/20/19 16 Active aspirin 81 MG Delayed Release Oral Tablet ORAL aspirin 81 MG Delayed Release Oral TabletOriginal Medicationaspirin 81 MG Delayed Release Oral Tablet *Reorder from [facility] for eRx and Interaction Alerts* 11/20/19 16 Active bisoprolol fumarate 5 MG / hydrochlorothiazide 6.25 MG Oral Tablet ORAL bisoprolol fumarate 5 MG / hydrochlorothiazide 6.25 MG Oral TabletOriginal Medicationbisoprolol fumarate 5 MG / hydrochlorothiazide 6.25 MG Oral Tablet *Reorder from [facility] for eRx and Interaction Alerts* 11/20/19 16 Active Simvastatin 20 MG Oral Tablet ORAL simvastatin 20 MG Oral TabletOriginal Medicationsimvastatin 20 MG Oral Tablet *Reorder from [facility] for eRx and Interaction Alerts* 11/20/19 16 Active acetaminophen 325 MG Oral Tablet [Tylenol] ORAL acetaminophen 325 MG Oral Tablet [Tylenol]Original Medicationacetaminophen 325 MG Oral Tablet [Tylenol] *Reorder from [facility] for eRx and Interaction Alerts* 11/20/19 16 Active Vital Signs Height-cm 160.02 cm 02/06/2024 Weight-kg 98.88 kg 02/06/2024 Height 63.00 in 02/06/2024 Weight 218 lbs 02/06/2024 BMI 38.61 kg/m2 02/06/2024 Encounters Encounter Location Date Provider Diagnosis [address] [id number] 02/06/2024 ELENITA RIVERA Other hammer toe(s) (acquired), right foot M20.41 ; Tinea unguium B35.1 ; Other hammer toe(s) (acquired), left foot M20.42 ; Pain in right toe(s) M79.674 ; Pain in left toe(s) M79.675 and Unspecified atherosclerosis of [place] arteries of extremities, bilateral legs I70.[address] [id number] 04/09/2024 ELENITA RIVERA Other hammer toe(s) (acquired), right foot M20.41 ; Tinea unguium B35.1 ; Other hammer toe(s) (acquired), left foot M20.42 ; Pain in right toe(s) M79.674 ; Pain in left toe(s) M79.675 ; Unspecified atherosclerosis of [place] arteries of extremities, bilateral legs I70.203 ; [...] (ICD-10 - M79.675) 04/09/2024 Unspecified atherosclerosis of [place] arteries of extremities, bilateral legs (ICD-10 - I70.203) Patient educated on risks and aggravating factors of PVD, including conservative treatment options such as a diet and exercise regimen to aid in slowing progression of vascular disease 02/06/2024 Unspecified atherosclerosis of [place] arteries of extremities, bilateral legs (ICD-10 - [...] Insured Coverage Start Date Coverage End Date [facility] [address] [place] [id number] TRICIA BOSTON Self - patient is the insured Medical (General) History Medical History History ICD Code Arthritis skin cancer high blood pressure
[2024-12-02 11:04] LABS: Add Urine Microscopic? YES; Appearance Urine Clear (Clear); Bilirubin Urine Negative (Negative); Blood Urine Negative (Negative); Glucose Urine UA Negative (Negative); Ketones Urine Trace (Negative); Leukocyte Esterase Ur 2+ LEU/UL (Negative); Nitrate Urine Negative (Negative); Protein Urine Trace (Negative); Urobilinogen Urine 0.2 mg/dL (0.2-1.0)
[2024-12-02 11:12] LABS: Color Urine Amber (Yellow); RBC Urine 0-2 /hpf (0-2); Squamous Epithelial Cell Urine Few /hpf (Few)
[2024-12-02 11:13] LABS: Bacteria Urine 1+ /hpf
== END 2024-12-02 10:13 | disposition home or self-care (01) ==
PROVIDERS: PCP Nurse Practitioner Family; Visit Provider Nurse Practitioner Family
DX: R82.90 Unspecified abnormal findings in urine (principal)
CPT/HCPCS: 81001; 87086

== ENCOUNTER 2025-02-19 07:25 | Outpatient (CLI) | payer MEDICARE, SELFPAY ==
--- OUTSIDE RECORDS SUMMARY | 2024-06-11 05:50 | XMS_ITS ---
Author Organization [facility] Address [address] [place], [place] [id number] Care Team Providers Care Domestic Violence Counselor Name Role Phone Maritza Acevedo Unavailable Unavailable ELENITA RIVERA Unavailable [phone] REASON FOR VISIT *General care Encounters Encounter Location Date Provider Diagnosis [address] [id number] 06/11/2024 ELENITA RIVERA Plan Of Treatment No Information Progress Notes * TRICIA BOSTON ADOB:[birth year] (80 yo F)Acc No.[id number]:06/11/2024 Patient: Lyndsey COLEMAN TRICIA [place] Provider: Hammad RIVERA :1945 A ge:79 Y S ex:Female Date:06/11/2024 Address:[address] [facility] Subjective: * Chief Complaints: * 1 . *General care. * Medical History: Objective: * Vitals: Assessment: Plan: * Treatment: * Billing Information: * Visit Code: * Procedure Codes: * Electronic signature of CRISTEL RIVERA DPM on 02/19/2025 at 07:28 AM CDT Sign off status: Pending * Provider: Hammad RIVERA Date: 1 08/12/2023 Generated for Kaitlynn suh/Re/Chio on: 0 02/19/2025 07:28 AM CDT
--- NOTE | ~2025-02-19 | US_ITS ---
US abdomen complete EXAMINATION: US Abdomen Complete INDICATION: Upper abdominal pain PROCEDURE: Realtime High Resolution abdomen ultrasound. COMPARISON: No prior studies for comparison FINDINGS: Visualized pancreas is unremarkable. Liver is hyperechoic likely due to fatty infiltration or hepatocellular disease. Hepatopedal flow in the visualized portal vein. Gallbladder is unremarkable. No Hernandez sign. Common duct measures 5 mm. Visualized inferior vena cava is unremarkable. Visualized abdominal aorta is not aneurysmal. Spleen is not enlarged measuring 8.7 cm in greatest dimension. Right kidney measures 11.3 x 4.5 x 4.5 cm. No right-sided hydronephrosis. Left kidney was not visualized. The study is slightly limited due to the patient's imaging characteristics and overlying bowel gas. IMPRESSION: 1: Left kidney was not visualized 2. The liver is hyperechoic likely due to fatty infiltration and/or hepatocellular disease. If symptoms persist or worsen, consider a CT of the abdomen and pelvis for further assessment. Reviewed, dictated and finalized at location Q. IMPRESSION: 1: Left kidney was not visualized 2. The liver is hyperechoic likely due to fatty infiltration and/or hepatocellu lar disease. If symptoms persist or worsen, consider a CT of the abdomen and pelvis for furt her assessment.
--- OUTSIDE RECORDS SUMMARY | 2025-02-19 07:28 | XMS_ITS | Clinical Summary ---
Author Organization [facility] Address [facility] [place] [address] Care Team Providers Care Medical Records Field Technician Name Role Phone Nj Szymanski MD Unavailable Maritza Acevedo WEB MARKETING INTERN Primary Care Provider [phone] Allergies Active Allergy Reactions Criticality Noted Date [...] 6:04 PM CDT Height 157.5 cm (5' 2) 10/16/2024 6:04 PM CDT Body Mass Index [...] age to complete this topic Insurance MEDICARE [employer] CASUALTY [facility] Care Teams Medical Records Field Technician Relationship Specialty Start Date End Date Maritza Acevedo FNP [address] [place] [address] PCP - General NURSE PRACTITIONER 10/16/24 Nj Szymanski MD [address] [place] [id number] [place] [employer] CARDIOVASCULAR DISEASE 04/24/17
--- OUTSIDE RECORDS SUMMARY | 2025-02-19 07:28 | XMS_ITS | Patient Health Record ---
Author Organization [facility] Address [address] [place], [place] [address] Care Team Providers Care Brick Maker Name Role Phone Maritza Acevedo Unavailable Unavailable ELENITA RIVERA Unavailable [phone] Allergies Allergen (clinical drug ingredient) Drug/Non Drug [...] 200 MG Oral Tablet [Motrin] *Reorder from [employer] for eRx and Interaction Alerts* 11/20/19 16 Active omeprazole 10 MG Delayed Release Oral Capsule [Prilosec] ORAL omeprazole 10 MG Delayed Release Oral Capsule [Prilosec]Original Medicationomeprazole 10 MG Delayed Release Oral Capsule [Prilosec] *Reorder from [facility] for eRx and Interaction Alerts* 11/20/19 16 Active aspirin 81 MG Delayed Release Oral Tablet ORAL aspirin 81 MG Delayed Release Oral TabletOriginal Medicationaspirin 81 MG Delayed Release Oral Tablet *Reorder from [facility] for eRx and Interaction Alerts* 11/20/19 16 Active bisoprolol fumarate 5 MG / hydrochlorothiazide 6.25 MG Oral Tablet ORAL bisoprolol fumarate 5 MG / hydrochlorothiazide 6.25 MG Oral TabletOriginal Medicationbisoprolol fumarate 5 MG / hydrochlorothiazide 6.25 MG Oral Tablet *Reorder from [facility] for eRx and Interaction Alerts* 11/20/19 16 Active Simvastatin 20 MG Oral Tablet ORAL simvastatin 20 MG Oral TabletOriginal Medicationsimvastatin 20 MG Oral Tablet *Reorder from [facility] for eRx and Interaction Alerts* 11/20/19 16 Active acetaminophen 325 MG Oral Tablet [Tylenol] ORAL acetaminophen 325 MG Oral Tablet [Tylenol]Original Medicationacetaminophen 325 MG Oral Tablet [Tylenol] *Reorder from [facility] for eRx and Interaction Alerts* 11/20/19 16 Active Encounters Encounter Location Date Provider Diagnosis [address] [id number] 04/09/2024 ELENITA RIVERA Other hammer toe(s) (acquired), right foot M20.41 ; Tinea unguium B35.1 ; Other hammer toe(s) (acquired), left foot M20.42 ; Pain in right toe(s) M79.674 ; Pain in left toe(s) M79.675 ; Unspecified atherosclerosis of [place] arteries of extremities, bilateral legs I70.203 ; Ingrowing nail L60.0 ; Localized edema R60.0 ; Cellulitis of right toe L03.031 and Cutaneous abscess of right foot L02.611 Assessments Encounter Date Diagnosis (ICD Code) Assessment Notes Treatment Notes Treatment Clinical Notes Section Notes 04/09/2024 Tinea unguium (ICD-10 - B35.1) Aseptic [...] (ICD-10 - M79.675) 04/09/2024 Unspecified atherosclerosis of [place] arteries of extremities, bilateral legs (ICD-10 - [...] Insured Coverage Start Date Coverage End Date [facility] [address] [place] [id number] TRICIA BOSTON Self - patient is the insured Medical (General) History Medical History History ICD Code Arthritis skin cancer high blood pressure
== END 2025-02-19 07:26 | disposition home or self-care (01) ==
LOC: CHSIMG 07:26
PROVIDERS: PCP Nurse Practitioner Family; Visit Provider Nurse Practitioner Family
DX: R10.10 Upper abdominal pain, unspecified (principal)
CPT/HCPCS: 76700

== ENCOUNTER 2025-04-01 11:19 | Outpatient (CLI) | payer MEDICARE, SELFPAY ==
--- NOTE | ~2025-04-01 | XR_ITS ---
EXAMINATION: XR knee LT min 4V, 04/01/2025 11:45 CDT HISTORY: M25.562 - Pain in left knee COMPARISON: No comparisons available. Findings: No acute fracture or malalignment. Severe degenerative changes, small effusion Soft tissues unremarkable. Impression: No acute fracture or malalignment. Reviewed, dictated and finalized at location P. Impression: No acute fracture or malalignment.
--- NOTE | ~2025-04-01 | XR_ITS ---
EXAMINATION: XR hip LT min 2V, 04/01/2025 11:45 CDT HISTORY: M25.552 - Pain in left hip COMPARISON: No comparisons available. Findings: No acute fracture or malalignment. Moderate degenerative changes Soft tissues unremarkable. Impression: No acute fracture or malalignment. Reviewed, dictated and finalized at location P. Impression: No acute fracture or malalignment.
--- OUTSIDE RECORDS SUMMARY | 2025-04-01 11:44 | XMS_ITS | Clinical Summary ---
Author Organization [facility] Address [facility] [place] [address] Care Team Providers Care Private Investigator Surveillance Name Role Phone Nj Szymanski MD Unavailable [phone] Maritza Acevedo MEDICAID NURSE Primary Care Provider [phone] Allergies Active Allergy Reactions Criticality Noted Date [...] Scan (General) 01/05/2012 COVID-19 Vaccine ( season) 2025 03/16/2024, 03/24/2023, 04/29/2022, Additional history exists DTaP, [...] topic Insurance MEDICARE [employer] CASUALTY [facility] Care Teams Private Investigator Surveillance Relationship Specialty Start Date End Date Maritza Acevedo FNP [address] [place] [address] PCP - General NURSE PRACTITIONER 10/16/24 Nj Szymanski MD [address] [place] [phone] [place] Director Of [employer] CARDIOVASCULAR DISEASE 04/24/17
== END 2025-04-01 11:20 | disposition home or self-care (01) ==
LOC: CHSIMG 11:19
PROVIDERS: PCP Nurse Practitioner Family; Visit Provider Nurse Practitioner Family
DX: M25.552 Pain in left hip (principal); M25.562 Pain in left knee
CPT/HCPCS: 73502; 73564